=== PATIENT | female | born 1930 | race Caucasian/White ===

== ENCOUNTER 2018-01-14 21:03 | Inpatient (IN) | payer OTHER ==
[~2018-01-14] VITALS: Ht 160 cm; Wt 76.7 kg
[~2018-01-14 21:03] MED LIST: ARICEPT 5 MG TAB5 MG PO; ARIPIPRAZOLE5 MG PO; ASPIR 8181 MG PO; BACTRIM DS TAB1 EACH PO; CENTRUM SILVER1 EAC4 PO; CYMBALTA30 MG PO; HYDROCHLOROTHIA25 M1 PO; LAMICTAL100 MG PO; LISINOPRIL20 MG PO; LORAZEPAM 1 MG T1 M1 PO; NORVASC5 MG PO; PRAVASTATIN SOD40 MG PO; PRINIVIL20 MG PO; SERTRALINE HCL50 MG PO; VISION FORMULA1 EAC1 PO; VITAMIN D1000 UNI1 PO; VITAMIN D2000 UNIT PO; XANAX 0.25 MG0.25 MG PO; XANAX 0.5 MG0.5 MG PO
[2018-01-14 21:10] VITALS: BP 174/108
[2018-01-14] MEDS ORDERED: RITALIN5 MG PO (21:15)
[2018-01-14 21:47] LABS: ABSOLUTE BASOPHILS 0.1 thou/uL (0.0-0.2); ABSOLUTE EOSINOPHILS 0.1 thou/uL (0.0-0.7); ABSOLUTE LYMPHOCYTES 2.7 thou/uL (0.8-5.3); ABSOLUTE MONOCYTES 0.5 thou/uL (0.0-1.2); ABSOLUTE NEUTROPHILS 4.6 thou/uL (1.6-8.1); BASOPHILS 1.2 %; EOSINOPHILS 1.7 %; HEMOGLOBIN 12.8 gm/dL (12.0-15.0); LYMPHOCYTES 33.2 %; MCHC 32.8 g/dL (28.0-37.0); MCV 88.4 fL (80.0-100.0); MONOCYTES 6.6 %; MPV 9.2 fl. (7.2-11.1); NUCLEATED RBCS 0 /100WBC; PLATELET COUNT* 200 thou/uL (150-400); POLYS 57.3 %; RBC 4.41 mil/uL (4.20-5.00); WBC 8.1 thou/uL (4.0-11.0)
[2018-01-14 21:53] LABS: CALCIUM 8.6 mg/dL (8.5-10.1); CREATININE 0.9 mg/dL (0.6-1.3); POTASSIUM 3.6 mmol/L (3.5-5.1)
[2018-01-14 21:55] LABS: APTT 28.1 Seconds (25.0-31.3)
[2018-01-14 21:57] LABS: TOTAL BILIRUBIN 0.2 mg/dL (<0.1-1.0); TOTAL PROTEIN 6.9 g/dL (6.4-8.2)
[2018-01-15] VITALS: BP 187/88
[2018-01-15 00:30] VITALS: BP 187/75
--- NOTE | 2018-01-15 01:58 | NUR ---
PATIENT ADMITTED TO ROOM 104 FROM THE ER. VSS ON RA, ALTHOUGH BP ELEVATED. NOTIFIED OF ELEVATED BP. WAITING FOR ANY NEW ORDERS. PATIENT IS ALERT AND ORIENTED AND ANSWERS QUESTIONS APPROPRIATELY. PICTURES TAKEN OF ALL LACERATIONS AND ABRASIONS EXCEPT FOR THE RIGHT FOREARM. PATIENT AND DAUGHTER REQUESTED THAT THE DRESSING NOT BE REMOVED D/T ER HAVING DIFFICULTY STOPPING THE BLEEDING. ER APPLIED GEL SPONGE AND COMPRESSING DRESSING. NO C/O PAIN AT THIS TIME. PATIENT ORIENTED TO ROOM AND POLICIES. ASSESSMENT CHARTED. FALL EDUCATION GIVEN AND FALL AGREEMENT SIGNED. PATIENT AND DAUGHTER VERBALIZED UNDERSTANDING. FALL PRECAUTIONS IN PLACE AND HOURLY ROUNDS TO BE MADE. WILL CONTINUE WITH PLAN OF CARE AND NURSING TO MONITOR.
[2018-01-15 03:30] VITALS: BP 187/75
[2018-01-15 03:44] VITALS: BP 191/88
[2018-01-15 07:30] VITALS: BP 143/66
--- NOTE | 2018-01-15 08:00 | NUR ---
PATIENT HAS SLEPT WELL THROUGHOUT THE NIGHT SINCE BEING ADMITTED TO UNIT. PATIENT WAKES UP WHEN AROUSED AND SPOKEN TOO AND ANSWERS QUESTIONS APPROPRIATELY. PATIENT IS UP WITH ASSIST X 1 WITH CANE TO BS AND IS UNSTEADY AT TIMES. VSS ON RA, ALTHOUGH BP ELEVATED. MEDICATION GIVEN FOR ELEVATED BP PER DR. HARDIN. PICTURES OF RIGHT ARM SKIN TEARS, RIGHT AND LEFT HAND ABRASIONS AND CONTUSION TO RIGHT SIDE OF FOREHEAD WERE TAKEN AND PLACED IN PATIENT CHART. COMPRESSION DRESSING TO RIGHT ARM IS C/D/I AND HAS NOT BEEN REMOVED AT THE REQUEST OF FAMILY AND PATIENT D/T HAVING DIFFICULTY CONTROLLING THE BLEEDING. WOUND CARE HAS BEEN CONSULTED THIS AM. PATIENT DENIES PAIN AT THIS TIME AND STATES THAT SHE IS JUST A LITTLE SORE AND STIFF RIGHT NOW. IV IN LEFT AC-SL. FALL PRECAUTIONS IN PLACE AND HOURLY ROUNDS MADE. WILL CONTINUE WITH PLAN OF CARE AND NURSING TO MONITOR.
--- NOTE | 2018-01-15 14:45 | NUR ---
PT.UP IN CHAIR. SON AND HIS HERE. PT.SEEMS ALERT AND ORIENTED. SHE SAID SHE LIVES ALONE. SHE HAS A CAREGIVER M-F 11-4 AND THEN ABOUT 6-8PM. SHE COOKS,CLEANS,DOES ERRANDS,MOWS THE GRASS,DOES LAUNDRY. PT. SAID SHE'LL DO ABOUT ANYTHING I ASK. SHE HAS A DIFFERENT DISPATCH MACHINE RUNNER THAT COMES ON MONDAY AND STAYS THE SAME HRS. FAMILY CHECKS IN ON HER ON SUNDAYS. PT.JUST FEELS SHE TRIPPED ON SOMETHING AND FELL LAST NIGHT. SHE IS AGREEABLE TO HOME HEALTH. SHE WOULD LIKE TO USE [facility] SHE USED THEM BEFORE. FAXED REFERRAL TO [facility]. PT.WILL MOST LIKELY GO HOME TOMORROW.
[2018-01-15 16:00] VITALS: BP 140/60
--- NOTE | 2018-01-15 20:04 | NUR ---
PATIENT REMAINED ALERT AND ORIENTED X'S 3. VITAL SIGNS AND SPO2 STABLE. IV CLEAN, FLUSHING. PAIN WELL CONTROLLED WITH MEDS. TOLERATED DIET, NO NAUSEA AND VOMITING. PATIENT IS IMPULSIVE AND GETS UP WITHOUT CALLING OUT FOR HELP. NURSE RE-EDUCATED PATIENT A FEW TIMES THAT SHE MUST USE THE CALL LIGHT. NURSE AND AID BOTH TOOK PATIENT FOR A WALK, THAT HELPED HER GET OUT OF THE ROOM. COMPLETED HOURLY ROUNDING. CALL LIGHT WITHIN REACH. WILL CONTINUE TO MONITOR.
[2018-01-16 02:18] VITALS: BP 183/88
--- NOTE | 2018-01-16 04:26 | NUR ---
PATIENT ALERT AND ORIENTED X 4, FORGETFUL AT TIMES. DENIES PAIN. RIGHT FOREARM DRESSING C/D/I. MULTPILE BRUISES TO FACE AND UPPER AND LOWER EXTREMITIES DUE TO FALL. SLEPT COMFORTABLY THROUGH THE NIGHT. UP WITH SBA CANE AND GAITBELT TO BSC. HOURLY ROUNDS. BED ALARM IN USE. USES CALL LIGHT APPROPRIATELY AT TIMES. NURSING WILL CONTINUE TO MONITOR.
[2018-01-16 04:43] LABS: ABSOLUTE BASOPHILS 0.1 thou/uL (0.0-0.2); ABSOLUTE EOSINOPHILS 0.2 thou/uL (0.0-0.7); ABSOLUTE LYMPHOCYTES 1.6 thou/uL (0.8-5.3); ABSOLUTE MONOCYTES 0.7 thou/uL (0.0-1.2); ABSOLUTE NEUTROPHILS 5.6 thou/uL (1.6-8.1); BASOPHILS 0.6 %; EOSINOPHILS 2.4 %; HEMATOCRIT 38.5 % (37.0-47.0); HEMOGLOBIN 12.7 gm/dL (12.0-15.0); LYMPHOCYTES 19.6 %; MCH 28.5 pg (26.0-34.0); MCV 86.4 fL (80.0-100.0); MONOCYTES 8.5 %; MPV 9.9 fl. (7.2-11.1); NUCLEATED RBCS 0 /100WBC; PLATELET COUNT* 194 thou/uL (150-400); POLYS 68.9 %; RBC 4.46 mil/uL (4.20-5.00); WBC 8.2 thou/uL (4.0-11.0)
[2018-01-16 04:53] LABS: CREATININE 0.8 mg/dL (0.6-1.3); POTASSIUM 3.8 mmol/L (3.5-5.1)
[2018-01-16 07:59] VITALS: BP 162/77
[2018-01-16 13:19] VITALS: BP 162/77
--- NOTE | 2018-01-16 13:52 | NUR ---
WOUND CARE NOTE: CONSULT RECEIVED FOR ABRASIONS, CONTUSION, LACERATION. PATIENT HAS MULTIPLE AREAS OF ECCHYMOSIS AND TRAUMA RELATED SKIN ALTERATION. MOST CONCERNING INJURY IS TO THE RIGHT POSTERIOR FOREARM. PATIENT IS S/P FALL AND SUSTAINED THIS DURING HER FALL. PATIENT IS NOT SURE WHAT SHE HIT HER ARM ON THOUGH. DRESSING WITH SMALL TO MODERATE AMOUNTS OF DRIED SANGUINEOUS DRAINAGE. THIS WAS DIFFICULT TO REMOVE, BUT SATURATED THE OLD DRESSING IN WOUND CLEANSER AND SLOWLY EASED THE DRESSING OFF. PROXIMAL AND DISTAL ENDS OF THE WOUNDS WITH STERI-STRIPS IN PLACE. LEFT IN PLACE. CENTER OF THE WOUND IS OPEN WITH GEL FOAM. GENTLY CLEANSED MOST OF GEL FOAM OFF TO REVEAL THE WOUND BED. ENTIRETY OF THE WOUND MEASURES 21.5X2X0.5. THE OPEN WOUND BED IS MOIST, PINK. DRAINING SMALL AMOUNTS OF SEROSANGUINEOUS DRAINAGE. NO ACTIVE BLEEDING NOTED. MAGDALENE-WOUND IS ECCHYMOTIC, FRAGILE. GENTLY CLEANSED WOUND. PATTED DRY. APPLIED VASELINE GAUZE OVER THE WOUND AND STERI-STRIPS TO HELP WITH WOUND HEALING AND TO ASSIST WITH PREVENTING THE DRESSING FROM STICKING IT DID PREVIOUSLY. COVERED AREA WITH ABDS. SECURED WITH ROLL GAUZE AND TAPE. EDUCATED PATIENT ON FINDINGS AND DRESSING SELECTION, COMMUNICATED UNDERSTANDING. EDUCATED PATIENT ON IMPORTANCE OF NUTRITION FOR WOUND HEALING, COMMUNICATED UNDERSTANDING. EDUCATED PATIENT NOT TO GET DRESSING WET AND TO LET THE STERI-STRIPS COME OFF ON THEIR OWN. COMMUNICATED UNDERSTANDING RECOMMEND FOLLOW UP IN WOUND CENTER-01/19/[address] BRIAN ENCOURAGE GOOD NUTRITION AND HYDRATION FOR WOUND HEALING LEAVE STERI-STRIPS IN PLACE UNTIL THEY COME OFF ON OWN. DAILY DRESSING CHANGES DO NOT GET DRESSING WET.
[2018-01-16 16:00] VITALS: BP 154/99
--- NOTE | 2018-01-16 17:20 | NUR ---
PATIENT REMAINS ALERT AND ORIENTED. FORGETFUL AT TIMES. ANXIOUS. HOME RITALIN STARTED TODAY (DAUGHTER BROUGHT IT IN). WOUND CARE NURSE CHANGED DRESSING OVER SKIN TEAR TO RIGHT ARM THIS AM. WOUND CENTER FOLLOW UP APPT MADE. PARTICIPATED WITH PT/OT. TOLERATING MEALS. TRANSFERS AND AMBULATES WITH STANDBY ASSIST. BED/CHAIR ALARM IN USE. CALL LIGHT WITHIN REACH. WILL CONTINUE TO MONITOR.
[2018-01-16 19:30] VITALS: BP 167/91
[2018-01-17 02:44] LABS: URINE BILIRUBIN NEGATIVE (Negative); URINE BLOOD TRACE (Negative); URINE CLARITY CLEAR; URINE COLOR STRAW; URINE GLUCOSE-RANDOM NEGATIVE (Negative); URINE KETONES NEGATIVE (Negative); URINE LEUKOCYTES-REFLEX 1+ (Negative); URINE NITRITE-REFLEX NEGATIVE (Negative); URINE PROTEIN NEGATIVE (Negative); URINE UROBILINOGEN 0.2 E.U./dl (0.2-1.0)
[2018-01-17 03:14] LABS: BACTERIA-REFLEX 1-9 Few /HPF (None Seen); CASTS None Seen /LPF (None Seen); CRYSTALS None Seen /LPF (None Seen); SQUAMOUS 0-3 Few /LPF (0-3); URINE RBC 0-2 Rare /HPF (0-2); URINE WBC-REFLEX 0-5 Rare /HPF (0-5)
[2018-01-17 03:50] VITALS: BP 194/104
[2018-01-17 03:55] VITALS: BP 183/92
[2018-01-17 04:31] LABS: ABSOLUTE BASOPHILS 0.1 thou/uL (0.0-0.2); ABSOLUTE EOSINOPHILS 0.1 thou/uL (0.0-0.7); ABSOLUTE LYMPHOCYTES 2.4 thou/uL (0.8-5.3); ABSOLUTE MONOCYTES 0.7 thou/uL (0.0-1.2); BASOPHILS 0.6 %; EOSINOPHILS 1.6 %; HEMATOCRIT 37.9 % (37.0-47.0); HEMOGLOBIN 12.7 gm/dL (12.0-15.0); LYMPHOCYTES 29.3 %; MCHC 33.4 g/dL (28.0-37.0); MCV 86.8 fL (80.0-100.0); MONOCYTES 8.5 %; MPV 9.9 fl. (7.2-11.1); NUCLEATED RBCS 0 /100WBC; PLATELET COUNT* 205 thou/uL (150-400); RBC 4.36 mil/uL (4.20-5.00); WBC 8.4 thou/uL (4.0-11.0)
--- NOTE | 2018-01-17 04:47 | NUR ---
PATIENT ALERT AND ORIENTED X 4. ANXIOUS WITH CONSTANT TEARINESS TOWARDS BEDTIME. PHYSICIAN NOTIFED WITH NEW ORDERS. XANAX PROVIDED X 1 TO GOOD EFFECT AND PATIENT DID REST OVERNIGHT. ELEVATED BP EARLY AM. PRN HYDRALAZINE PROVIDED. UP TP BE WITH CGA, GAIT BELT AND CANE OR WALKER. DID TRIGGER BED ALARM X 2. CONTINUE TO MONITOR.
[2018-01-17 04:53] LABS: CREATININE 0.7 mg/dL (0.6-1.3); POTASSIUM 3.7 mmol/L (3.5-5.1)
[2018-01-17 08:30] VITALS: BP 177/98
[2018-01-17 10:18] VITALS: BP 162/77
[2018-01-17] MEDS ORDERED: TYLENOL EXTRA500 MG PO (10:18)
--- NOTE | 2018-01-17 10:42 | NUR ---
CALLED PATIENTS CAREGIVER JAIME TO LET HER KNOW SHE IS READY FOR DISCHARGE. DRESSING CHANGED. PICTURE WITHIN LAST 2 HOURS. WOUND CENTER FOLLOW UP MADE YESTERDAY. CAERGIVER COMFORTABLE WITH DRESSING CHANGES. IV REMOVED. DAUGHTER GURDEEP NOTIFIED OF DC. PATIENT VERBALIZED UNDERSTANDING OF DC INSTRUCTIONS.
--- NOTE | 2018-01-17 11:46 | NUR ---
MELANY/ABRAHAM NOTIFIED [facility] THAT PT.DID NOT NEED [facility] AT DISCHARGE. THEY WILL DISCARD REFERRAL.
--- NOTE | 2018-01-17 13:40 | NUR ---
PATIENT DISCHARGED WITH CAREGIVER-JAIME AT THIS TIME. INSTRUCTED JAIME ON WOUND CARE, AND INFORMED HER OF WOUND CENTER APPT 01/19/ AT 0800. JAIME VERBALIZED UNDERSTANDING.
== END 2018-01-17 13:45 | disposition home or self-care (01) | DRG 605 ==
LOC: M.ERS 21:03 → M.ORTHSURG 22:52 → M.TBA-ER 22:52 → M.ORTHSURG 01-15
PROVIDERS: Personal Emergency Response Attendant; ADMIT Internal Medicine
PROC: 0HQDXZZ Repair Right Lower Arm Skin, External Approach (ICD-10-PCS; principal; 2018-01-14)
DX: S51.811A Laceration without foreign body of right forearm, initial encounter (principal); E44.0 Moderate protein-calorie malnutrition; S09.8XXA Other specified injuries of head, initial encounter; I10 Essential (primary) hypertension; F41.9 Anxiety disorder, unspecified; F32.9 Major depressive disorder, single episode, unspecified; W01.0XXA Fall on same level from slipping, tripping and stumbling without subsequent striking against object, initial encounter; Z96.653 Presence of artificial knee joint, bilateral; Z79.82 Long term (current) use of aspirin; Z79.899 Other long term (current) drug therapy; Z88.0 Allergy status to penicillin; Y93.89 Activity, other specified; Y92.098 Other place in other non-institutional residence as the place of occurrence of the external cause; Y99.8 Other external cause status

== ENCOUNTER → 2018-01-19 | Outpatient (CLI) | payer OTHER ==
[~2018-01-19] MED LIST changes: +RITALIN5 MG PO; +TYLENOL EXTRA500 MG PO
== END ==
LOC: M.WC 02:30
DX: S51.811A Laceration without foreign body of right forearm, initial encounter (principal); S61.411A Laceration without foreign body of right hand, initial encounter; I10 Essential (primary) hypertension; K59.00 Constipation, unspecified; F33.1 Major depressive disorder, recurrent, moderate; F41.1 Generalized anxiety disorder; Z68.28 Body mass index [BMI] 28.0-28.9, adult; X58.XXXA Exposure to other specified factors, initial encounter; Y93.89 Activity, other specified; Y92.89 Other specified places as the place of occurrence of the external cause; Y99.8 Other external cause status

== ENCOUNTER → 2018-01-26 | Outpatient (CLI) | payer OTHER | LOC: M.WC 02:16 | DX: S51.811D Laceration without foreign body of right forearm, subsequent encounter (principal); S61.411D Laceration without foreign body of right hand, subsequent encounter; L84 Corns and callosities; I10 Essential (primary) hypertension; F32.9 Major depressive disorder, single episode, unspecified; F41.9 Anxiety disorder, unspecified; Z96.653 Presence of artificial knee joint, bilateral; X58.XXXD Exposure to other specified factors, subsequent encounter ==

== ENCOUNTER → 2018-02-01 | Outpatient (CLI) | payer OTHER | LOC: M.WC 03:54 | DX: S51.811D Laceration without foreign body of right forearm, subsequent encounter (principal); S61.411D Laceration without foreign body of right hand, subsequent encounter; I10 Essential (primary) hypertension; L84 Corns and callosities; K59.00 Constipation, unspecified; F33.1 Major depressive disorder, recurrent, moderate; F41.1 Generalized anxiety disorder; Z68.28 Body mass index [BMI] 28.0-28.9, adult; Z96.653 Presence of artificial knee joint, bilateral; X58.XXXD Exposure to other specified factors, subsequent encounter ==

== ENCOUNTER → 2018-02-08 | Outpatient (CLI) | payer OTHER | LOC: M.WC 03:22 | DX: S51.811D Laceration without foreign body of right forearm, subsequent encounter (principal); I10 Essential (primary) hypertension; F33.1 Major depressive disorder, recurrent, moderate; F41.1 Generalized anxiety disorder; K59.00 Constipation, unspecified; Z68.28 Body mass index [BMI] 28.0-28.9, adult; Z89.512 Acquired absence of left leg below knee; Z89.511 Acquired absence of right leg below knee; X58.XXXD Exposure to other specified factors, subsequent encounter ==

== ENCOUNTER → 2018-02-15 | Outpatient (CLI) | payer OTHER | LOC: M.WC 03:56 | DX: S51.801D Unspecified open wound of right forearm, subsequent encounter (principal); L84 Corns and callosities; I10 Essential (primary) hypertension; K59.00 Constipation, unspecified; F33.1 Major depressive disorder, recurrent, moderate; F41.1 Generalized anxiety disorder; Z96.653 Presence of artificial knee joint, bilateral; X58.XXXD Exposure to other specified factors, subsequent encounter ==

== ENCOUNTER → 2018-02-22 | Outpatient (CLI) | payer OTHER | LOC: M.WC 02:05 | DX: S51.811D Laceration without foreign body of right forearm, subsequent encounter (principal); I10 Essential (primary) hypertension; F33.1 Major depressive disorder, recurrent, moderate; F41.1 Generalized anxiety disorder; K59.00 Constipation, unspecified; W19.XXXD Unspecified fall, subsequent encounter ==

== ENCOUNTER → 2018-03-01 | Outpatient (CLI) | payer OTHER | LOC: M.WC 03:47 | DX: S51.811D Laceration without foreign body of right forearm, subsequent encounter (principal); I10 Essential (primary) hypertension; L84 Corns and callosities; K59.00 Constipation, unspecified; F33.1 Major depressive disorder, recurrent, moderate; F41.1 Generalized anxiety disorder; Z68.28 Body mass index [BMI] 28.0-28.9, adult; Z96.653 Presence of artificial knee joint, bilateral; X58.XXXD Exposure to other specified factors, subsequent encounter ==

== ENCOUNTER 2018-10-15 14:32 | Inpatient (IN) | payer OTHER ==
[~2018-10-15] VITALS: Ht 157.5 cm; Wt 73.0 kg
[~2018-10-15 14:32] MED LIST changes: -ASPIR 8181 MG PO
[2018-10-15 14:42] VITALS: BP 165/73
[2018-10-15] MEDS ORDERED: EFFEXOR 5050 MG/1 T1 PO (14:50)
[2018-10-15 15:13] LABS: HEMATOCRIT 42.3 % (37.0-47.0); HEMOGLOBIN 13.8 gm/dL (12.0-15.0); MCH 28.2 pg (26.0-34.0); MCHC 32.7 g/dL (28.0-37.0); MCV 86.3 fL (80.0-100.0); MPV 9.9 fl. (7.2-11.1); NUCLEATED RBCS 0 /100WBC; PLATELET COUNT* 236 thou/uL (150-400); RDW-CV 15.9 % (10.5-14.5); WBC 15.7 thou/uL (4.0-11.0)
[2018-10-15 15:20] LABS: APTT 30.5 Seconds (25.0-31.3); PROTIME 10.2 Seconds (9.20-11.50)
[2018-10-15 15:32] LABS: ANION GAP < 0 mmol/L (7-16); BUN 37 mg/dL (7-18); CALCIUM 9.6 mg/dL (8.5-10.1); CHLORIDE 100 mmol/L (98-107); CO2 29 mmol/L (21-32); CREATININE 1.3 mg/dL (0.6-1.3); GLUCOSE 122 mg/dL (70-99); POTASSIUM 3.2 mmol/L (3.5-5.1); SODIUM 125 mmol/L (136-145); TROPONIN-I LEVEL <0.06 ng/mL (<0.06)
[2018-10-15 15:48] LABS: ALBUMIN 3.2 g/dL (3.4-5.0); ALKALINE PHOSPHATASE 136 U/L (46-116); CK-MB MASS 26.4 ng/mL (<0.5-3.6); NT-PRO BRAIN NAT PEPTIDE 684 pg/mL (<300); SGOT 79 U/L (15-37); SGPT 47 U/L (30-65); TOTAL BILIRUBIN 0.5 mg/dL (<0.1-1.0); TOTAL PROTEIN 7.6 g/dL (6.4-8.2)
--- NOTE | 2018-10-15 16:13 | EKG ---
[place] [address] ELECTROCARDIOGRAM REPORT Name: CHAO HERRERA Room: [facility]#: [id number] Admission: 10/15/18 Attend Phys: Discharge: Date of : 34 Report #: [id number] THIS REPORT FOR: //name// [facility] ED Test Date: 2018-10-15 Test Time: 14:50:36 Pat Name: CHAO HERRERA Department: Room: Gender: F Railroad Operating Engineer: WENDI : 1930 Requested By: Kee Hill Order Number: [id number] MD: Kannan Grullon Measurements Intervals [place] Rate: 101 P: 19 TN: 157 QRS: -21 QRSD: 70 T: 101 QT: 352 QTc: 457 Interpretive Statements Pacemaker spikes or artifacts Sinus tachycardia LVH with secondary repolarization abnormality Anterior Q waves, possibly due to LVH Compared to ECG 04/18/2017 10:51:53 Left ventricular hypertrophy now present Early repolarization now present Q waves now present Atrial premature complex(es) no longer present Electronically Signed On 10-15-2018 16:13:11 CISCO UNIFIED COMMUNICATIONS ENGINEER by Kannan Grullon [email or web address] <ELECTRONICALLY SIGNED> By: Kannan Grullon MD, [facility] 10/15/18 1613 1450 1450 Kannan Grullon MD, [facility] /EPI
[2018-10-15 16:17] LABS: ABSOLUTE LYMPHOCYTES 1.4 thou/uL (0.8-5.3); ABSOLUTE MONOCYTES 0.8 thou/uL (0.0-1.2); ABSOLUTE NEUTROPHILS 13.5 thou/uL (1.6-8.1); PLATELET ESTIMATE ADEQUATE
[2018-10-15 16:20] LABS: URINE BILIRUBIN NEGATIVE (Negative); URINE BLOOD 2+ (Negative); URINE CLARITY CLEAR; URINE COLOR YELLOW; URINE GLUCOSE-RANDOM NEGATIVE (Negative); URINE KETONES 1+ (Negative); URINE LEUKOCYTES-REFLEX NEGATIVE (Negative); URINE PROTEIN 1+ (Negative); URINE SPECIFIC GRAVITY >= 1.030 (1.005-1.030); URINE UROBILINOGEN 0.2 E.U./dl (0.2-1.0)
[2018-10-15 16:39] LABS: URINE NITRITE-REFLEX POSITIVE (Negative)
[2018-10-15 16:40] LABS: BACTERIA-REFLEX >30 Many /HPF (None Seen); CASTS None Seen /LPF (None Seen); CRYSTALS None Seen /LPF (None Seen); SQUAMOUS 0-3 Few /LPF (0-3); URINE RBC None Seen /HPF (0-2); URINE WBC-REFLEX 6-15 Few /HPF (0-5)
[2018-10-15 17:17] VITALS: BP 160/89
[2018-10-15 17:25] VITALS: BP 139/62
[2018-10-15 19:40] VITALS: BP 150/61
[2018-10-16 04:00] VITALS: BP 160/66
[2018-10-16 06:39] LABS: AMP/METHAMP Negative (Negative); BARBITURATES Negative (Negative); BENZODIAZEPINES POSITIVE (Negative); COCAINE Negative (Negative); METHADONE Negative (Negative); OPIATES Negative (Negative); PCP Negative (Negative); THC Negative (Negative)
[2018-10-16 07:13] LABS: POTASSIUM 3.7 mmol/L (3.5-5.1)
[2018-10-16 08:00] VITALS: BP 152/74
[2018-10-16 10:18] LABS: ABSOLUTE BASOPHILS 0.1 thou/uL (0.0-0.2); ABSOLUTE LYMPHOCYTES 1.6 thou/uL (0.8-5.3); ABSOLUTE MONOCYTES 0.8 thou/uL (0.0-1.2); BASOPHILS 0.6 %; EOSINOPHILS 0.1 %; HEMATOCRIT 34.7 % (37.0-47.0); LYMPHOCYTES 14.2 %; MCH 28.4 pg (26.0-34.0); MCV 85.8 fL (80.0-100.0); MONOCYTES 6.7 %; MPV 10.3 fl. (7.2-11.1); NUCLEATED RBCS 0 /100WBC; PLATELET COUNT* 199 thou/uL (150-400); POLYS 78.4 %; RBC 4.04 mil/uL (4.20-5.00); RDW-CV 15.7 % (10.5-14.5); WBC 11.5 thou/uL (4.0-11.0)
[2018-10-16 10:19] LABS: HEMOGLOBIN 11.5 gm/dL (12.0-15.0)
[2018-10-16 10:48] LABS: CALCIUM 8.4 mg/dL (8.5-10.1); CREATININE 0.9 mg/dL (0.6-1.3); MAGNESIUM 1.9 mg/dL (1.8-2.4)
[2018-10-16 11:30] VITALS: BP 158/53
[2018-10-16 15:30] VITALS: BP 170/78
--- NOTE | 2018-10-16 16:38 | EKG ---
[place] [address] ELECTROCARDIOGRAM REPORT Name: CHAO HERRERA Room: [address] ADM IN M.R.#: [id number] Admission: 10/15/18 Attend Phys: Sofi Flores MD Discharge: Date of : 32 Report #: [id number] THIS REPORT FOR: //name// [facility] Test Date: 2018-10-16 Test Time: 13:15:39 Pat Name: CHAO HERRERA Department: Room: [address] Gender: F Fisheries Diver: : 1930 Requested By: Sofi Flores Order Number: [id number] Reading MD: Kannan Grullon Measurements Intervals [place] Rate: 105 P: 28 ME: 140 QRS: -26 QRSD: 87 T: 35 QT: 336 QTc: 445 Interpretive Statements Sinus tachycardia Inferior infarct, old Baseline wander in lead(s) II,III,aVF Compared to ECG 10/15/2018 14:50:36 Myocardial infarct finding now present Early repolarization no longer present Electronically Signed On 10-16-2018 16:38:08 FIRE PROTECTION SPECIALIST by Kannan Grullon [email or web address] <ELECTRONICALLY SIGNED> By: Kannan Grullon MD, [facility] 10/16/18 1638 1315 1315 Kannan Grullon MD, [facility] /EPI
[2018-10-16 19:50] VITALS: BP 159/72
[2018-10-16 20:00] VITALS: BP 124/55
[2018-10-17 00:52] VITALS: BP 166/93
[2018-10-17 04:57] VITALS: BP 142/73
[2018-10-17 05:02] LABS: ABSOLUTE BASOPHILS 0.1 thou/uL (0.0-0.2); ABSOLUTE EOSINOPHILS 0.1 thou/uL (0.0-0.7); ABSOLUTE LYMPHOCYTES 1.8 thou/uL (0.8-5.3); ABSOLUTE MONOCYTES 0.6 thou/uL (0.0-1.2); ABSOLUTE NEUTROPHILS 5.1 thou/uL (1.6-8.1); BASOPHILS 1.2 %; EOSINOPHILS 1.2 %; HEMOGLOBIN 10.3 gm/dL (12.0-15.0); LYMPHOCYTES 22.9 %; MCH 28.6 pg (26.0-34.0); MCHC 33.2 g/dL (28.0-37.0); MCV 86.3 fL (80.0-100.0); MONOCYTES 8.1 %; MPV 10.1 fl. (7.2-11.1); NUCLEATED RBCS 0 /100WBC; PLATELET COUNT* 173 thou/uL (150-400); POLYS 66.6 %; RDW-CV 15.5 % (10.5-14.5); WBC 7.7 thou/uL (4.0-11.0)
[2018-10-17 05:42] LABS: CALCIUM 8.1 mg/dL (8.5-10.1); CREATININE 0.7 mg/dL (0.6-1.3); POTASSIUM 3.5 mmol/L (3.5-5.1)
[2018-10-17 08:00] VITALS: BP 177/89
[2018-10-17 13:17] VITALS: BP 170/71
[2018-10-17 16:57] VITALS: BP 165/64
[2018-10-17 20:00] VITALS: BP 170/72
[2018-10-18] VITALS: BP 203/78
[2018-10-18 04:00] VITALS: BP 148/55
[2018-10-18 08:00] VITALS: BP 167/74
[2018-10-18 10:38] VITALS: BP 167/74
[2018-10-18 11:47] VITALS: BP 150/74
[2018-10-18] MEDS ORDERED: BACTRIM DS TAB1 EACH PO (12:27)
[2018-10-18] MEDS ORDERED: AMLODIPINE BESYL5 M1 PO (12:28)
[2018-10-18] MEDS ORDERED: ASPIR 8181 MG PO (14:10)
[2018-10-18 14:11] VITALS: BP 167/74
== END 2018-10-18 18:45 | DRG 871 ==
LOC: M.ERS 14:32 → M.2W 16:00 → M.TBA-ER 16:00 → M.2W 17:28
PROVIDERS: Family Medicine; ADMIT Family Medicine
DX: A41.9 Sepsis, unspecified organism (principal); N17.0 Acute kidney failure with tubular necrosis; N39.0 Urinary tract infection, site not specified; E87.1 Hypo-osmolality and hyponatremia; M62.82 Rhabdomyolysis; R65.20 Severe sepsis without septic shock; I12.9 Hypertensive chronic kidney disease with stage 1 through stage 4 chronic kidney disease, or unspecified chronic kidney disease; F41.9 Anxiety disorder, unspecified; F32.9 Major depressive disorder, single episode, unspecified; Z96.653 Presence of artificial knee joint, bilateral; N18.3 Chronic kidney disease, stage 3 (moderate); F03.90 Unspecified dementia, unspecified severity, without behavioral disturbance, psychotic disturbance, mood disturbance, and anxiety; E87.6 Hypokalemia; R00.0 Tachycardia, unspecified; Z79.82 Long term (current) use of aspirin; Z88.0 Allergy status to penicillin; Z79.899 Other long term (current) drug therapy

== ENCOUNTER 2018-10-24 13:54 | Inpatient (IN) | payer OTHER ==
[~2018-10-24] VITALS: Ht 160 cm; Wt 71.7 kg
[~2018-10-24 13:54] MED LIST changes: +AMLODIPINE BESYL5 M1 PO; +ASPIR 8181 MG PO; +EFFEXOR 5050 MG/1 T1 PO
[2018-10-24 14:06] VITALS: BP 172/71
[2018-10-24 14:28] LABS: ABSOLUTE BASOPHILS 0.1 thou/uL (0.0-0.2); ABSOLUTE EOSINOPHILS 0.1 thou/uL (0.0-0.7); ABSOLUTE LYMPHOCYTES 1.8 thou/uL (0.8-5.3); ABSOLUTE MONOCYTES 0.5 thou/uL (0.0-1.2); ABSOLUTE NEUTROPHILS 4.4 thou/uL (1.6-8.1); BASOPHILS 1.4 %; EOSINOPHILS 2.1 %; HEMATOCRIT 38.2 % (37.0-47.0); HEMOGLOBIN 12.6 gm/dL (12.0-15.0); LYMPHOCYTES 26.5 %; MCH 28.6 pg (26.0-34.0); MCV 86.8 fL (80.0-100.0); NUCLEATED RBCS 0 /100WBC; PLATELET COUNT* 266 thou/uL (150-400); RBC 4.41 mil/uL (4.20-5.00); RDW-CV 15.8 % (10.5-14.5); WBC 6.9 thou/uL (4.0-11.0)
[2018-10-24 14:40] LABS: APTT 29.7 Seconds (25.0-31.3); INR 0.9; PROTIME 9.6 Seconds (9.20-11.50)
[2018-10-24 14:48] LABS: ANION GAP 4 mmol/L (7-16); BUN 24 mg/dL (7-18); CALCIUM 9.1 mg/dL (8.5-10.1); CHLORIDE 102 mmol/L (98-107); CO2 30 mmol/L (21-32); CREATININE 1.1 mg/dL (0.6-1.3); GLUCOSE 90 mg/dL (70-99); POTASSIUM 5.1 mmol/L (3.5-5.1); SODIUM 136 mmol/L (136-145); TROPONIN-I LEVEL <0.06 ng/mL (<0.06)
--- NOTE | 2018-10-24 14:48 | NUR ---
WILFRIDO NOTIFIED UPON PT RETURN FROM CT. PT CONNECTED TO HOSPITAL PHARMACIST SHE WAS PRIOR TO GOING TO CT
[2018-10-24 14:53] LABS: ALBUMIN 3.2 g/dL (3.4-5.0); ALKALINE PHOSPHATASE 126 U/L (46-116); CK-MB MASS 1.6 ng/mL (<0.5-3.6); NT-PRO BRAIN NAT PEPTIDE 93 pg/mL (<300); SGOT 41 U/L (15-37); SGPT 57 U/L (30-65); TOTAL BILIRUBIN 0.3 mg/dL (<0.1-1.0); TOTAL PROTEIN 7.2 g/dL (6.4-8.2)
[2018-10-24 15:28] LABS: URINE BILIRUBIN NEGATIVE (Negative); URINE BLOOD NEGATIVE (Negative); URINE CLARITY CLEAR; URINE COLOR YELLOW; URINE GLUCOSE-RANDOM NEGATIVE (Negative); URINE KETONES NEGATIVE (Negative); URINE LEUKOCYTES-REFLEX TRACE (Negative); URINE NITRITE-REFLEX NEGATIVE (Negative); URINE PROTEIN NEGATIVE (Negative); URINE SPECIFIC GRAVITY 1.015 (1.005-1.030); URINE UROBILINOGEN 0.2 E.U./dl (0.2-1.0)
[2018-10-24 15:36] LABS: HYALINE CASTS 0-3 Few /LPF (None Seen)
[2018-10-24 15:37] LABS: BACTERIA-REFLEX 1-9 Few /HPF (None Seen); MUCUS None Seen strn/LPF (None Seen); SQUAMOUS >10 Many /LPF (0-3); URINE WBC-REFLEX 6-15 Few /HPF (0-5)
[2018-10-24 15:38] LABS: CRYSTALS None Seen /LPF (None Seen); URINE RBC None Seen /HPF (0-2)
[2018-10-24 16:54] VITALS: BP 135/64
[2018-10-24 17:40] VITALS: BP 146/69
--- NOTE | 2018-10-24 18:10 | NUR ---
ADMIT NOTE - PT ADMITTED TO [facility] FROM ED. PT ABLE TO AMBULATE FROM CART TO BED WITH MINIMAL ASSIST X 1. DTR PRESENT AT BEDSIDE. IV IN R AC. WILL CONTINUE TO MONITOR.
[2018-10-24 21:01] LABS: BE 1.6 mmol/L (-2 to +3); PCO2 41.7 mmHg (35.0-45.0); PO2 86.9 mmHg (75.0-100.0); pH 7.417 (7.340-7.450)
[2018-10-25] VITALS: BP 132/65
[2018-10-25 04:00] VITALS: BP 124/67
[2018-10-25 04:12] LABS: HEMATOCRIT 34.2 % (37.0-47.0); HEMOGLOBIN 11.3 gm/dL (12.0-15.0); MCH 28.9 pg (26.0-34.0); MCV 87.5 fL (80.0-100.0); MPV 9.5 fl. (7.2-11.1); RBC 3.91 mil/uL (4.20-5.00); RDW-CV 16.3 % (10.5-14.5); WBC 6.9 thou/uL (4.0-11.0)
[2018-10-25 04:27] LABS: ANION GAP 3 mmol/L (7-16); BUN 23 mg/dL (7-18); CALCIUM 8.2 mg/dL (8.5-10.1); CHLORIDE 107 mmol/L (98-107); CHOLESTEROL 204 mg/dL (<200); CO2 28 mmol/L (21-32); CREATININE 1.1 mg/dL (0.6-1.3); GLUCOSE 81 mg/dL (70-99); HDL CHOLESTEROL 50 mg/dL (>40); LDL CHOLESTEROL 131 mg/dL (<100); POTASSIUM 4.3 mmol/L (3.5-5.1); SODIUM 138 mmol/L (136-145); TC:HDL 4.1 Ratio (Not establshd); TRIGLYCERIDE 117 mg/dL (<150); VLDL 23 mg/dL (<40)
[2018-10-25 04:52] LABS: SERUM ASSESSMENT CLEAR
--- NOTE | 2018-10-25 06:00 | NUR ---
PATIENT SLEPT MOST OF THE NIGHT. IV FLUIDS CONTINUE TO INFUSE ORDERED. PATIENT HAS BEEN A LITTLE FORGETFUL THIS SHIFT. UMBERTOTENT HAS HAD NO COMPLAINTS OF PAIN. WILL CONTINUE TO MONITOR.
[2018-10-25 08:00] VITALS: BP 143/65
[2018-10-25 12:15] VITALS: BP 131/54
--- NOTE | 2018-10-25 13:33 | 2DMMODE ---
[place] [address] 2 D/M-MODE ECHOCARDIOGRAM Name: CHAO HERRERA Room: [address] IN [facility]#: [id number] Admission: 10/24/18 Attend Phys: Sofi Flores MD Discharge: Date of : 34 Date of Service: 10/25/18 1332 Report #: [id number] THIS REPORT FOR: //name// APPROVED REPORT Study performed: 10/25/2018 10:26:13 EXAM: Comprehensive 2D, Doppler, and color-flow Echocardiogram Patient Location: In-Patient Room #: [facility] Status: routine BSA: 1.75 HR: 71 bpm BP: 143/65 mmHg Rhythm: NSR Other Information Study Quality: Good Indications Syncope Echo Enhancing Agent Indication: Rule out Shunt Agent(s) / Amount(s) Used: Agitated Saline 10 cc 2D Dimensions IVSd: 10.31 (7-11mm) LVOT Diam: 21.45 (18-24mm) LVDd: 50.94 mm PWd: 9.52 (7-11mm) Ascending Ao: 29.14 (22-36mm) LVDs: 35.36 (25-40mm) Aortic Root: 30.78 mm Volumes Left Atrial Volume (Systole) LA ESV Index: 34.70 mL/m2 Aortic Valve AoV Peak Roc.: 1.24 m/s AO Peak Gr.: 6.12 mmHg LVOT Max P.46 mmHg AO Mean Gr.: 3.41 mmHg LVOT Mean P.28 mmHg LVOT Max V: 0.78 m/s AO V2 VTI: 26.49 cm LVOT Mean V: 0.52 m/s NEL (VTI): 2.46 cm2 LVOT V1 VTI: 18.03 [place] [address] 2 D/M-MODE ECHOCARDIOGRAM Name: CHAO HERRERA Room: [address]#: [id number] Admission: 10/24/18 Attend Phys: Sofi Flores MD Discharge: Date of : 34 Date of Service: 10/25/18 1332 Report #: [id number] Mitral Valve E/A Ratio: 0.78 MV Decel. Time: 221.70 ms MV E Max Roc.: 0.82 m/s MV PHT: 64.29 ms MVA (PHT): 3.42 cm2 TDI E/Lateral E': 5.86 E/Medial E': 8.20 Medial E' Roc.: 0.10 m/s Lateral E' Roc.: 0.14 m/s Pulmonary Valve PV Peak Roc.: 0.87 m/s PV Peak Gr.: 3.05 mmHg Left Ventricle The left ventricle is normal size. There is normal LV segmental wall motion. There is normal left ventricular wall thickness. Left ventricular systolic function is normal. LVEF is 55-60%. Grade I - abnormal relaxation pattern. Right Ventricle The right ventricle is normal size. The right ventricular systolic function is normal. Atria The left atrium size is normal. Interatrial septum is intact without evidence of ASD or PFO. The right atrium size is normal. Aortic Valve The aortic valve is normal in structure. No aortic regurgitation is present. There is no aortic valvular stenosis. Mitral Valve The mitral valve is normal in structure. Mild mitral regurgitation. No evidence of mitral valve stenosis. Tricuspid Valve The tricuspid valve is normal in structure. Trace tricuspid regurgitation. Pulmonic Valve The pulmonary valve is normal in structure. There is no pulmonic valvular regurgitation[place] [address] 2 D/M-MODE ECHOCARDIOGRAM Name: CHAO HERRERA Room: [address] IN [facility]#: [id number] Admission: 10/24/18 Attend Phys: Sofi Flores MD Discharge: Date of : 34 Date of Service: 10/25/18 1332 Report #: [id number] The aortic root is normal in size. IVC is normal in size and collapses >50% with inspiration. Pericardium There is no pericardial effusion. <Conclusion> The left ventricle is normal size. There is normal left ventricular wall thickness. Left ventricular systolic function is normal. LVEF is 55-60%. Grade I - abnormal relaxation pattern. Interatrial septum is intact without evidence of ASD or PFO. Mild mitral regurgitation. IVC is normal in size and collapses >50% with inspiration. <ELECTRONICALLY SIGNED> By: Chauncey Laird MD, FACC 10/25/18 133 133 31 Chauncey Laird MD, FACC /INF
--- NOTE | 2018-10-25 13:37 | EKG ---
[place] [address] ELECTROCARDIOGRAM REPORT Name: CHAO HERRERA Room: [address] ADM IN .R.#: [id number] Admission: 10/24/18 Attend Phys: Sofi Flores MD Discharge: Date of : 32 Report #: [id number] THIS REPORT FOR: //name// [facility] ED Test Date: 2018-10-24 Test Time: 14:22:45 Pat Name: CHAO HERRERA Department: Room: [facility] Gender: F News Library Director: : 1930 Requested By: Kee Hill Order Number: [id number] MD: Chauncey Laird Measurements Intervals [place] Rate: 73 P: 6 MS: 139 QRS: -26 QRSD: 88 T: 34 QT: 386 QTc: 426 Interpretive Statements Sinus rhythm Atrial premature complex Abnormal R-wave progression, late transition Left ventricular hypertrophy, by voltage Inferior infarct, old Baseline wander in lead(s) V1,V6 Compared to ECG 10/16/2018 13:15:39 Atrial premature complex(es) now present Left ventricular hypertrophy now present Sinus tachycardia no longer present Myocardial infarct finding still present Electronically Signed On 10-25-2018 13:37:44 CDT by Chauncey Laird [email or web address] <ELECTRONICALLY SIGNED> By: Chauncey Laird MD, [facility] 10/25/18 1337 1422 1422 Chauncey Laird MD, [facility] /EPI
--- NOTE | 2018-10-25 16:19 | NUR ---
SHIFT NOTE - PT UNABLE TO TOLERATE MRI THIS MORNING. REC ORDER FROM FOR ATIVAN IV. PT RETURNED BACK FROM MRI CONFUSED, DTR AT BEDSIDE. 1400 - PT ASLEEP. WILL CONTINUE TO MONITOR.
[2018-10-25 17:13] VITALS: BP 146/49
[2018-10-26 00:30] VITALS: BP 134/61
[2018-10-26 04:35] VITALS: BP 135/87
--- NOTE | 2018-10-26 06:24 | NUR ---
PATIENT SLEPT PART OF THE NIGHT. PATIENT HAS BEEN VERY CONFUSED AND FORGETFUL. TEARFUL AT TIMES BECAUSE SHE DOES KNOW WHERE SHE IS. IV FLUIDS CONTINUE TO INFUSE ORDERED. WILL CONTINUE TO MONITOR.
[2018-10-26 07:51] VITALS: BP 168/71
--- NOTE | 2018-10-26 10:16 | CON ---
[address] [address] CONSULTATION Name: CHAO HERRERA Room: [address] IN ..#: [id number] Admission: 10/24/18 Attend Phys: Sofi Flores MD Discharge: Date of : 32 Report #: [id number] THIS REPORT FOR: //name// CC: Reid Blazesabina Sofi Flores DATE OF SERVICE: 10/25/2018 HISTORY OF PRESENT ILLNESS: This is an 87-year-old female patient who was evaluated by me for stroke-like symptoms. I talked to the daughter and she indicated that this patient lives at home. It looks like the caregiver comes and is with her several hours a day. Her memory is poor. She was admitted with what looks like encephalopathy. She came back because somebody noticed a facial droop on the left side. She was admitted. When I saw this patient, she just had Ativan. She was jerking. Apparently, she had similar reaction to Ativan in the past. She does have a history of anxiety. REVIEW OF SYSTEMS: Also indicate that the patient's oxygen saturation was low and she was recommended home oxygen at one time. She has bilateral knee replacement and she has chronic kidney disease. She has a shoulder surgery in the past. She has a history of hypertension. This was her relevant 14-point review of system. PAST MEDICAL HISTORY: Negative for any stroke. FAMILY HISTORY: Negative for early age stroke. SOCIAL HISTORY: She lives by herself, but the daughter helps a lot. PHYSICAL EXAMINATION: The patient's examination indicate that it was not possible to examine the patient. When I asked her what month it is, she could not tell me, she could not tell me what hospital she is in. I tried to do the cranial nerve examination, she did not cooperate. She moves all four extremities and she also appeared to be having some jerking movement. There was no meningeal sign. There is no carotid bruit. Cardiac examinations appear unremarkable. No respiratory difficulty was noticed except her baseline. She is a moderately built individual. Her blood pressure is 131/54, respirations 16, pulse is 84 and temperature is 97.2. WBC count is 6.9. Protime is normal. She was sent down for MRI and MRA. She did not finish it even after Ativan. MRI demonstrates occipital lobe CVA, but that will not correlate with the patient's clinical symptoms of left-sided weakness. IMPRESSION: 1. [place] [address] CONSULTATION Name: CHAO HERRERA Dilcia Room: [address]#: [id number] Admission: 10/24/18 Attend Phys: Sofi Flores MD Discharge: Date of : 32 Report #: [id number] 2. By history, she has left-sided facial droop. That will not correlate with the patient's stroke. 3. She needs workup for stroke. 4. She also has altered mental status and what appeared to be significant jerking of all four extremities. She needs further workup for that and we will also get an EEG done in that regard. Since she could not do an MRI and her kidney function is borderline, workup is going to be difficult, we will do a carotid Doppler and an EEG in this patient and after that we will review that workup and then decide what further workup needs to be done. Dr. Zarate will follow up this patient with you from tomorrow. <ELECTRONICALLY SIGNED> By: Lucho Borjas MD 10/26/18 1016 1316 0151Pcarmina Borjas MD /nt
[2018-10-26 12:00] VITALS: BP 142/73
--- NOTE | 2018-10-26 12:54 | NUR ---
INITIAL ASSESSMENT: Pt evaluated for d/c planning needs. Reviewed chart and spoke with nurse, pt and daughter Eva Sierra. Pt has history of dementia and is living alone in a house. According to pt's daughter, pt has lifeline which she does not use. Pt has walker and cane, but does not remember to use them. Family has hired private duty caregiver for several hours a day. Caregiver fixes meals for pt or family supplies meals. Pt does not cook. Discussed recommendation of rehab doctor of pt requiring 24/7 supervision. Dtr said they are not able to provide 24 hour/day supervision. Discussed assisted living or senior care with dtr. She said pt has expressed in the past that she does not want to live in termite control servicer care. Also spoke at length with dtr about speaking with elder care criminal defense attorney re: stocks & bonds and house. Pt owns house with transfer on to grandchildren. Encouraged daughter several times to speak with elder care criminal defense attorney re: assets and Medicaid eligibility if family is thinking about pt moving to [place] or LTC. Dtr said that they had spoken with elder care criminal defense attorney in the past about pt's prior to his . Dtr said that she was told by insurance ([employer]) that any facility would accept that accepts Medicare. Explained that only certain facilities had contract with [employer]. Dtr will make decision re: d/c options.
[2018-10-26 16:00] VITALS: BP 118/63
--- NOTE | 2018-10-26 16:44 | NUR ---
ASSESSMENT COMPLETE. PT ORIENTED TO SELF. PT IS FORGETFUL. PT HAS PT/OT ORDERED, PENDING REHAB OR SNF FOR DC. NEURO CONSULT AND ROUNDED ON PATIENT. EEG AND US CAROTIDS WNL. PT IS ON ROOM AIR, VSS. PT IS FALL RISK, BED ALARM ON. IV FLUIDS INFUSING. DENIES PAIN AND N/V. SEE ASSESSMENT AND VITALS FOR OTHER DETAILS. CALL LIGHT WITHIN REACH, WILL CONTINUE PLAN OF CARE
[2018-10-26 20:20] VITALS: BP 145/78
[2018-10-27 00:54] VITALS: BP 145/62
[2018-10-27 04:00] VITALS: BP 179/72
--- NOTE | 2018-10-27 05:48 | NUR ---
PT UP IN CHAIR AT START OF SHIFT VISITING WITH DAUGHTER. HAS SLEPT WELL OVERNIGHT WITHOUT COMPLAINTS OF PAIN OR PROBLEMS, STATES SHE JUST WANTS TO GO HOME. UP WITH ASSIST OF ONE TO BATHROOM TO VOID OVERNIGHT. TELE SR, PAC. NO LABS THIS MORNING. MARIBELL TRAMMELL. ROOM AIR. HAS SOME RIGHT SIDED VISION DEFICITS DUE TO STROKE. ABLE TO USE CALL LITE AND MAKE NEEDS KNOWN. [place]AB [place], A[place]ING INSURANCE. CALL LITE IN EASY REACH AND BED ALARM ON FOR SAFETY.
[2018-10-27 07:51] VITALS: BP 140/74
[2018-10-27 16:23] VITALS: BP 141/90
--- NOTE | 2018-10-27 16:43 | NUR ---
ASSESSMENT COMPLETE. PT TEARFUL MOST OF THE DAY. PRN ANXIETY MEDICATIONS GIVEN. PT CONFUSED AND FORGETFUL MOST OF THE DAY. PT PLAN TO DC TO REHAB ONCE INSURANCE AUTH IS DONE. PT HAS UTI. PT/OT WITH PATIENT TODAY. DENIES PAIN AND N/V. PT IS ON ROOM AIR, VSS. PT HAS IV RIGHT AC, SALINE LOCKED. PT IS FALL RISK, BED ALARM ON. PT AT NURSES STATION IN CHAIR PART OF THE DAY TO ENCOURAGE COMMUNICATION AND DISTRACTION. PT HAS FAMILY AT BEDSIDE NOW. UP ONE ASSIST WITH WALKER AND GAIT BELT. SEE ASSESSMENT AND VITALS FOR OTHER DETAILS. CALL LIGHT WITHIN REACH, WILL CONTINUE PLAN OF CARE
[2018-10-27 20:00] VITALS: BP 133/57
[2018-10-28 00:59] VITALS: BP 132/53
[2018-10-28 04:30] VITALS: BP 112/52
--- NOTE | 2018-10-28 07:40 | NUR ---
PT SLEPT WELL OVERNIGHT WITHOUT COMPLAINTS OF PAIN OR PROBLEMS. AM LABS DRAWN. ABLE TO USE CALL LITE AND MAKE NEEDS KNOWN. BED ALARM ON FOR SAFETY. TELE SR PACS. MARIBELL TRAMMELL IV. R SIDE VISION DEFICITS. AWAITING INSURANCE APPROVAL FOR DISCHARGE TO REHAB.
[2018-10-28 07:50] VITALS: BP 130/64
[2018-10-28 16:18] VITALS: BP 125/66
--- NOTE | 2018-10-28 17:58 | NUR ---
RESUMED CARE OF PATIENT, REPORT RECIEVED FROM JACOBO MUSA. I CONCUR WITH HER DOCUMENTATION. PT REPORTED HAVING A HEADACHE, DR NOTIFIED, TYLENOL GIVEN PER ORDERS. WILL CONTINUE WITH PLAN OF CARE.
[2018-10-28 20:20] VITALS: BP 124/53
[2018-10-29 00:22] VITALS: BP 117/57
[2018-10-29 04:12] VITALS: BP 116/70
--- NOTE | 2018-10-29 04:54 | NUR ---
PT SLEPT WELL OVERNIGHT. RN HOME CARE EQUAL, NO FACIAL DROOP, LEG STRENGTH GOOD AND EQUAL. TELE SR WITH OCC PAC. AM LABS DRAWN. UP WITH ASSIST TO BR TO VOID. RIGHT SIDE VISION DEFICIT NOTED.RAC SL. ROOM AIR SAT 96%, CM FOLLOWING FOR DISCHARGE PLAN. ABLE TO USE CALL LITE AND MAKE NEEDS KNOWN. BED ALARM ON FOR SAFETY.
[2018-10-29 08:00] VITALS: BP 128/78
[2018-10-29 12:08] VITALS: BP 148/76
--- NOTE | 2018-10-29 15:22 | NUR ---
CAKE MAKER: MET WITH PATIENT AND DAUGHTER. ANSWERED QUESTIONS, PROVIDED SUPPORT. PATIENT SITTING IN CHAIR, TEARFUL AT TIMES. CONCERNED ABOUT VISION AND NEXT STEPS.
--- NOTE | 2018-10-29 15:47 | NUR ---
FOLLOWING PATIENT ALONG WITH DR. AGUILERA FOR POSSIBLE REHAB ADMISSION. PATIENT HAS BEEN TENTATIVELY ACCEPTED TO REHAB PENDING INSURANCE AUTHORIZATION. NOTIFIED CM, DANIELLE OF ACCEPTANCE PENDING INSURANCE AUTH.
--- NOTE | 2018-10-29 16:45 | NUR ---
SW received call from Laury Cody [facility] Camera Repairman regarding pending status for pt to admit to inpt rehab, pending insurance auth. SW to continue to follow to assist with safe dc planning.
[2018-10-29 16:48] VITALS: BP 155/84
--- NOTE | 2018-10-29 17:39 | NUR ---
PT SITTING IN CHAIR MOST OF SHIFT. PT PLEASANTLY CONFUSED AND OFTEN TEARFUL. TOLERATING PO WELL. VOIDING GOOD URINE OUTPUT. UP IN ROOM WITH SB ASSIST. PLAN TO GO TO REHAB IN AM
[2018-10-29 20:30] VITALS: BP 133/70
[2018-10-30 08:10] VITALS: BP 157/79
--- NOTE | 2018-10-30 16:41 | NUR ---
SW received call from Laury Salas, vocational rehabilitation teacher stating that pt insurance denied inpt rehab but offered peer to peer option and Dr Cho willing to call to complete peer to peer. SW to continue to follow to assist with safe dc planning.
[2018-10-30 17:43] VITALS: BP 145/74
--- NOTE | 2018-10-30 18:42 | NUR ---
PT A&O X4. PT SAO2 92% RA IN THE AM. PT WAS FEELING ANXIOUS IN THE AM, SHE STATED "I AM FEELING ANTSY THIS MORNING". PT AMBULATED JUDGE WAY WITH WALKER, STANDY BY ASSIST. PT TO BE DC'D TO REHAB, PENDING APPROVAL.
[2018-10-31 00:30] VITALS: BP 134/71
[2018-10-31 03:52] VITALS: BP 123/52
[2018-10-31 04:15] LABS: HEMATOCRIT 33.4 % (37.0-47.0); HEMOGLOBIN 10.8 gm/dL (12.0-15.0); MCH 28.2 pg (26.0-34.0); MCHC 32.4 g/dL (28.0-37.0); MCV 87.1 fL (80.0-100.0); MPV 9.3 fl. (7.2-11.1); RBC 3.84 mil/uL (4.20-5.00); WBC 6.6 thou/uL (4.0-11.0)
[2018-10-31 04:47] LABS: ALBUMIN 2.4 g/dL (3.4-5.0); CALCIUM 8.4 mg/dL (8.5-10.1); CREATININE 0.8 mg/dL (0.6-1.3); POTASSIUM 3.8 mmol/L (3.5-5.1); TOTAL BILIRUBIN 0.2 mg/dL (<0.1-1.0); TOTAL PROTEIN 5.8 g/dL (6.4-8.2)
--- NOTE | 2018-10-31 05:56 | NUR ---
PATIENT SLEPT MOST OF THE NIGHT. IV REMAINS SALINE LOCKED. UMBERTOTENT IS POSSIBLY GOING TO REHAB TODAY IF INSURANCE GETS APPROVED. WILL CONTINUE TO MONITOR.
[2018-10-31 08:10] VITALS: BP 152/71
[2018-10-31 12:00] VITALS: BP 124/68
--- NOTE | 2018-10-31 14:25 | NUR ---
Nutrition: Pt assessed for LOS. Will go to Rehab soon. Admitted with UTI, weakness. 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 RX: aspirin, D3, MVI. Heart Healthy diet ordered. Wt: 159#. Alb 2.4, prealb 21.3. No nutrition interventions needed at this time. Mild risk. Will follow on rehab unit.
[2018-10-31 16:00] VITALS: BP 124/67
--- NOTE | 2018-10-31 16:58 | NUR ---
Peer to peer did not overturn insurance decision to deny pt inpt rehab, SW discussed with family who wants to call for an appeal of that decision. SW to provide number as soon as known. SW discussed SNF options, pt/pt dtr still want to appeal but would consider [facility] SNF if the appeal does not provide approval results. SW to continue to follow to assist with safe dc planning. (Pt emotional about waiting for placement.)
--- NOTE | 2018-10-31 18:34 | NUR ---
PT A&O X4. PT ANXIOUS AND TEARFUL THIS AM. OT/PT WORKED WITH PT. PT PERFORMED SELFCARE. MEDS GIVEN SCHEDULED. PT AWAITING DC TO INPATIENT REHAB, PENDING APPROVAL.
[2018-11-01 00:20] VITALS: BP 152/68
[2018-11-01 03:55] VITALS: BP 149/62
--- NOTE | 2018-11-01 06:47 | NUR ---
PATIENT SLEPT MOST OF THE NIGHT. IV REMAINS SALINE LOCKED. PATIENT HAD NO COMPLAINTS OF PAIN. PATIENT WAS GIVEN ANXIETY MEDICINE ONCE THIS SHIFT. WILL CONTINUE TO MONITOR.
[2018-11-01 07:21] VITALS: BP 156/85
[2018-11-01] MEDS ORDERED: ATORVASTATIN CA20 MG PO (10:02)
[2018-11-01] MEDS ORDERED: HYDROXYZINE HCL25 M1 PO (10:02)
--- NOTE | 2018-11-01 15:27 | NUR ---
SPOKE WITH DTMaciel MACKENZIE [phone]. SHE SAID SHE HAD TALKED WITH THE INSURANCE COMPANY TO REQUEST AN APPEAL OF THE DENIAL FOR INPATIENT REHAB. SHE WAS TOLD THAT INFORMATION NEEDED TO BE FAXED IN TO THE MEDICALLY [facility]ECES[facility] REASONS THE PATIENT NEEDS INPATIENT REHAB. PHONE NUMBER [phone], [facility], FAX [phone]. INFORMATION GIVEN TO BULL DRIVER, SHE WILL CONTACT INSURANCE COMPANY TO FOLLOW UP ON FAMILY INITIATED APPEAL.
[2018-11-01 16:00] VITALS: BP 111/72
--- NOTE | 2018-11-01 17:06 | NUR ---
ASSESSMENT COMPLETE. PT ALERT AND ORIENTED X4, FORGETFUL AT TIMES. PT AMBULATED HALLS WITH PHYSICAL THERAPY THIS MORNING. PT DENIES PAIN AND N/V. PT PT STANDBY ASSIST WITH WALKER TO BATHROOM. PT HAS NO OTHER CONCERNS AT THIS TIME. SEE ASSESSMENT AND VITALS FOR OTHER DETAILS. CALL LIGHT WITHIN REACH, WILL CONTINUE PLAN OF CARE
[2018-11-01 20:20] VITALS: BP 139/60
--- NOTE | 2018-11-02 06:13 | NUR ---
ASSUMED PATIENT CARE AT 1900. PATIENT ALERT AND ORIENTED TIMES FOUR BUT CAN BE CONFUSED AND FORGETFUL AT TIMES. NO COMPLAINTS OF PAIN OR DISCOMFORT NOTED. PAINTER INTERIOR FINISH AND HOURLY ROUNDING COMPLETED DOCUMENTED. FALL LRISK PRECAUTIONS IN PLACE
[2018-11-02 07:51] VITALS: BP 137/56
[2018-11-02 15:30] VITALS: BP 143/67
--- NOTE | 2018-11-02 15:57 | NUR ---
ASSESSMENT COMPLETE. PT ALERT AND ORIENTED X4. PT HAD FAMILY DURING THE DAY. AMBULATED WITH PHYSICAL THERAPY. VSS. DENIES PAIN AND N/V. PT IS FALL RISK, CHAIR ALARM ON. TOLERATING ALL MEALS. SEE ASSESMENT AND VITALS FOR OTHER DETAILS. CALL LIGHT WITHIN REACH, WILL CONTINUE PLAN OF CARE
--- NOTE | 2018-11-02 16:36 | NUR ---
XIOMARA followed up with Laury [employer] who faxed needed updates to insurance and they are reviewing the appeal of the denial of the denial of the peer to peer. The insurance told Laury that they will contact her on Monday with a response. XIOMARA informed pt dtr. SW to continue to follow.
[2018-11-03] VITALS: BP 132/59
[2018-11-03 07:45] VITALS: BP 161/91
[2018-11-03 15:43] VITALS: BP 133/66
--- NOTE | 2018-11-03 17:33 | NUR ---
REHAB REMAINS PENDING. PATIENT UP TO CHAIR MOST OF SHIFT. PATIENTS SISTER HERE ALL MORNING AND AFTERNOON. PATIENT TEARFUL THIS AFTERNOON AFTER DR. GARCIA ROUNDED, PATIENT STATED SHE DIDNT UNDERSTAND WHAT THE PLAN WAS FOR HER, THIS NURSE INFORMED PATIENT OF PLAN OF CARE.
[2018-11-03 19:45] VITALS: BP 119/67
--- NOTE | 2018-11-04 07:43 | NUR ---
PT SLEPT MOST OF SHIFT. ASSESSMENT DOCUMENTED. MEDS GIVEN PER -OCT. NO IV ACCESS THIS SHIFT. NO REPORTS OF PAIN THIS SHIFT. FALL PRECAUTIONS IN PLACE. WILL CONTINUE WITH PLAN OF CARE.
[2018-11-04 08:00] VITALS: BP 141/67
[2018-11-04 15:00] VITALS: BP 116/73
--- NOTE | 2018-11-04 18:52 | NUR ---
PATIENT UP IN CHAIR ALL SHIFT. ASSISTED TO BATHROOM AND TO AMBULATE IN ROOM. PATIENT TEARFUL AFTER TALKING TO DR. GARCIA, ONE TIME DOSE OF XANAX ORDERED AND GIVEN. PATIENT VISITING WITH DAUGHTER AT THIS TIME. REHAB PENDING.
[2018-11-04 20:00] VITALS: BP 121/69
--- NOTE | 2018-11-05 05:45 | NUR ---
PT SLEPT MOST OF SHIFT. ASSESSMENT DOCUMENTED. MEDS GIVEN PER E-OCT. NO IV ASSESS THIS SHIFT. NO REPORTS OF PAIN OR NAUSEA. FALL PRECAUTIONS IN PLACE. WILL CONTINUE WITH PLAN OF CARE.
[2018-11-05 07:14] VITALS: BP 127/60
--- NOTE | 2018-11-05 10:12 | NUR ---
Pt to dc to [facility] inpt rehab today.
[2018-11-05 11:09] VITALS: BP 127/60
--- NOTE | 2018-11-05 12:53 | NUR ---
ASSESSMENT COMPLETE. PT ALERT AND ORIENTED X4. DENIES PAIN. TOLERATING MEALS AND DENIES N/V. PT IS APPROVED FOR REHAB. PAPERWORK SIGNED BY DOC. TRANSFERRED TO REHAB. SEE ASSESSMENT AND VITALS FOR OTHER DETAILS.
[2018-11-05 13:01] VITALS: BP 127/60
--- NOTE | 2018-11-06 09:53 | EEG ---
[address] [address] EEG STUDY REPORT Name: CHAO HERRERA Room: [address] IN .#: [id number] Admission: 10/24/18 Attend Phys: Sofi Flores MD Discharge: 11/05/18 Date of : 34 Report #: [id number] THIS REPORT FOR: //name// CC: Reid Blazesabina Sofi Flores DATE OF SERVICE: 10/25/2018 This patient is being evaluated for the possibility of seizures and because of the patient's altered mental status. EEG was done by placing the electrode by standard 10-20 system of electrode placement. Both referential and sequential montages were used for recording. Background activity in this patient's EEG is about 8 Hz and 30 microvolt. It was a symmetrical activity. Photic stimulation was unremarkable. The patient became drowsy and that is associated with bilateral slowing, vertex sharp waves. Throughout the record, no active epileptiform activity was noticed. IMPRESSION: This is a moderately abnormal EEG because it is disorganized and poorly formed. That is a nonspecific abnormality, which can occur with encephalopathy, dementia, effect of psychotropic medication, etc. No active epileptiform activity was noticed. Thank you very much for this referral. <ELECTRONICALLY SIGNED> By: Lucho Borjas MD 11/06/18 0953 1854 1918MD darryl Dailey
== END 2018-11-05 13:00 | DRG 64 ==
LOC: M.ERS 13:54 → M.TBA-ER 15:44 → M.3W 15:44
PROVIDERS: Family Medicine; ADMIT Family Medicine
DX: I63.9 Cerebral infarction, unspecified (principal); G92 Toxic encephalopathy; E43 Unspecified severe protein-calorie malnutrition; N39.0 Urinary tract infection, site not specified; F41.9 Anxiety disorder, unspecified; N18.3 Chronic kidney disease, stage 3 (moderate); I12.9 Hypertensive chronic kidney disease with stage 1 through stage 4 chronic kidney disease, or unspecified chronic kidney disease; F32.9 Major depressive disorder, single episode, unspecified; R29.810 Facial weakness; D64.9 Anemia, unspecified; I65.23 Occlusion and stenosis of bilateral carotid arteries; Z96.653 Presence of artificial knee joint, bilateral; H53.461 Homonymous bilateral field defects, right side; R29.6 Repeated falls; F03.90 Unspecified dementia, unspecified severity, without behavioral disturbance, psychotic disturbance, mood disturbance, and anxiety; H54.7 Unspecified visual loss; W18.30XA Fall on same level, unspecified, initial encounter; Z68.28 Body mass index [BMI] 28.0-28.9, adult; Y93.89 Activity, other specified; Y92.89 Other specified places as the place of occurrence of the external cause; Y99.8 Other external cause status; Z79.82 Long term (current) use of aspirin; Z79.899 Other long term (current) drug therapy; Z88.0 Allergy status to penicillin

== ENCOUNTER 2018-11-05 09:44 | Inpatient (IN) | payer OTHER ==
[~2018-11-05] VITALS: Ht 162.6 cm; Wt 75.7 kg
[~2018-11-05 09:44] MED LIST changes: +ATORVASTATIN CA20 MG PO; +HYDROXYZINE HCL25 M1 PO
[2018-11-05 14:15] VITALS: BP 138/67
[2018-11-05 20:00] VITALS: BP 145/74
[2018-11-06 04:40] LABS: HEMATOCRIT 32.4 % (37.0-47.0); HEMOGLOBIN 10.7 gm/dL (12.0-15.0); MCH 28.7 pg (26.0-34.0); MCV 87.1 fL (80.0-100.0); RBC 3.71 mil/uL (4.20-5.00); RDW-CV 16.1 % (10.5-14.5); WBC 6.3 thou/uL (4.0-11.0)
[2018-11-06 04:43] LABS: CALCIUM 8.5 mg/dL (8.5-10.1); CREATININE 0.9 mg/dL (0.6-1.3); POTASSIUM 3.9 mmol/L (3.5-5.1)
[2018-11-06 07:40] VITALS: BP 146/67
[2018-11-06 19:40] VITALS: BP 133/66
[2018-11-07 08:00] VITALS: BP 169/83
[2018-11-07 20:00] VITALS: BP 150/73
[2018-11-08 08:00] VITALS: BP 165/71
[2018-11-08 19:50] VITALS: BP 130/60
[2018-11-09 09:47] VITALS: BP 145/73
[2018-11-09 20:15] VITALS: BP 122/62
[2018-11-10 19:45] VITALS: BP 151/66
[2018-11-11 08:00] VITALS: BP 165/78
[2018-11-11 20:00] VITALS: BP 122/68
[2018-11-12 07:47] VITALS: BP 133/63
[2018-11-12 19:30] VITALS: BP 137/71
[2018-11-13 08:00] VITALS: BP 145/63
[2018-11-13 20:04] VITALS: BP 133/60
[2018-11-14 08:00] VITALS: BP 147/71
[2018-11-14 19:54] VITALS: BP 147/72
[2018-11-15 08:02] VITALS: BP 145/72
[2018-11-15 19:50] VITALS: BP 137/73
[2018-11-16 08:20] VITALS: BP 172/84
[2018-11-16 20:00] VITALS: BP 124/70
[2018-11-17 08:00] VITALS: BP 156/73
[2018-11-17 19:20] VITALS: BP 151/72
[2018-11-18 04:01] LABS: HEMOGLOBIN 11.9 gm/dL (12.0-15.0); MCH 28.8 pg (26.0-34.0); MCHC 33.1 g/dL (28.0-37.0); MCV 87.2 fL (80.0-100.0); MPV 9.3 fl. (7.2-11.1); RBC 4.13 mil/uL (4.20-5.00); RDW-CV 16.3 % (10.5-14.5); WBC 7.1 thou/uL (4.0-11.0)
[2018-11-18 04:21] LABS: CALCIUM 8.9 mg/dL (8.5-10.1); CREATININE 0.8 mg/dL (0.6-1.3); MAGNESIUM 2.1 mg/dL (1.8-2.4); POTASSIUM 3.8 mmol/L (3.5-5.1)
[2018-11-18 08:09] VITALS: BP 182/74
[2018-11-18 20:00] VITALS: BP 132/68
[2018-11-19 08:08] VITALS: BP 140/66
[2018-11-19 19:45] VITALS: BP 130/76
[2018-11-20 07:33] VITALS: BP 146/67
[2018-11-20 19:45] VITALS: BP 116/51
[2018-11-21 07:36] VITALS: BP 162/79
[2018-11-21 12:29] VITALS: BP 162/79
[2018-11-21 14:52] VITALS: BP 162/79
== END 2018-11-21 17:16 | disposition home health service (06) | DRG 947 ==
LOC: M.REH 09:44
PROVIDERS: Family Medicine; ADMIT Physical Medicine & Rehabilitation
DX: R53.81 Other malaise (principal); I63.9 Cerebral infarction, unspecified; E43 Unspecified severe protein-calorie malnutrition; F41.9 Anxiety disorder, unspecified; F32.9 Major depressive disorder, single episode, unspecified; F03.90 Unspecified dementia, unspecified severity, without behavioral disturbance, psychotic disturbance, mood disturbance, and anxiety; R29.6 Repeated falls; N18.3 Chronic kidney disease, stage 3 (moderate); D64.9 Anemia, unspecified; I12.9 Hypertensive chronic kidney disease with stage 1 through stage 4 chronic kidney disease, or unspecified chronic kidney disease; H54.7 Unspecified visual loss; Z96.653 Presence of artificial knee joint, bilateral; N39.3 Stress incontinence (female) (male); R26.9 Unspecified abnormalities of gait and mobility; Z68.28 Body mass index [BMI] 28.0-28.9, adult; Z87.891 Personal history of nicotine dependence; Z87.440 Personal history of urinary (tract) infections; Z79.82 Long term (current) use of aspirin; Z79.899 Other long term (current) drug therapy; Z88.0 Allergy status to penicillin

== ENCOUNTER 2019-02-05 10:58 | Emergency (ER) | payer OTHER ==
[~2019-02-05] VITALS: Ht 162.6 cm; Wt 70.3 kg
[2019-02-05] MEDS ORDERED: LIPITOR 20 MG T20 M1 PO (11:19)
[2019-02-05 11:43] LABS: ABSOLUTE BASOPHILS 0.1 thou/uL (0.0-0.2); ABSOLUTE EOSINOPHILS 0.1 thou/uL (0.0-0.7); ABSOLUTE LYMPHOCYTES 1.1 thou/uL (0.8-5.3); ABSOLUTE MONOCYTES 0.9 thou/uL (0.0-1.2); BASOPHILS 0.7 %; EOSINOPHILS 0.6 %; HEMATOCRIT 38.2 % (37.0-47.0); HEMOGLOBIN 12.7 gm/dL (12.0-15.0); LYMPHOCYTES 11.1 %; MCH 29.2 pg (26.0-34.0); MCHC 33.3 g/dL (28.0-37.0); MCV 87.6 fL (80.0-100.0); MONOCYTES 8.7 %; MPV 9.2 fl. (7.2-11.1); NUCLEATED RBCS 0 /100WBC; PLATELET COUNT* 193 thou/uL (150-400); POLYS 78.9 %; RBC 4.36 mil/uL (4.20-5.00); RDW-CV 14.1 % (10.5-14.5); WBC 10.1 thou/uL (4.0-11.0)
[2019-02-05 11:51] LABS: ANION GAP 7 mmol/L (7-16); APTT 29.6 Seconds (25.0-31.3); BUN 21 mg/dL (7-18); CHLORIDE 103 mmol/L (98-107); CO2 32 mmol/L (21-32); GLUCOSE 102 mg/dL (70-99); POTASSIUM 3.9 mmol/L (3.5-5.1); SODIUM 142 mmol/L (136-145)
[2019-02-05 11:57] LABS: ACETAMINOPHEN < 2 ug/mL (10-30); ALCOHOL < 10 mg/dL (<10); SALICYLATE < 2.8 mg/dL (2.8-20.0)
[2019-02-05 12:03] LABS: ALBUMIN 3.4 g/dL (3.4-5.0); ALKALINE PHOSPHATASE 142 U/L (46-116); LIPASE 68 U/L (73-393); SGOT 20 U/L (15-37); SGPT 27 U/L (30-65); TOTAL BILIRUBIN 0.6 mg/dL (<0.1-1.0); TOTAL PROTEIN 7.3 g/dL (6.4-8.2); TROPONIN-I LEVEL <0.06 ng/mL (<0.06)
[2019-02-05 13:16] LABS: URINE BILIRUBIN NEGATIVE (Negative); URINE BLOOD TRACE (Negative); URINE CLARITY CLEAR; URINE COLOR YELLOW; URINE GLUCOSE-RANDOM NEGATIVE (Negative); URINE KETONES NEGATIVE (Negative); URINE LEUKOCYTES-REFLEX NEGATIVE (Negative); URINE NITRITE-REFLEX NEGATIVE (Negative); URINE PROTEIN NEGATIVE (Negative); URINE UROBILINOGEN 0.2 E.U./dl (0.2-1.0)
[2019-02-05 14:18] LABS: AMP/METHAMP Negative (Negative); BARBITURATES Negative (Negative); BENZODIAZEPINES Negative (Negative); COCAINE Negative (Negative); METHADONE Negative (Negative)
[2019-02-05 14:50] VITALS: BP 123/66
[2019-02-05 14:50] LABS: OPIATES Negative (Negative); PCP Negative (Negative); THC Negative (Negative)
--- NOTE | 2019-02-05 16:27 | EKG ---
[place] [address] ELECTROCARDIOGRAM REPORT Name: CHAO HERRERA Room: [facility]#: [id number] Admission: 02/05/19 Attend Phys: Discharge: 02/05/19 Date of : 34 Report #: [id number] THIS REPORT FOR: //name// [facility] ED Test Date: 2019-02-05 Test Time: 11:38:56 Pat Name: CHAO HERRERA Department: Room: Gender: F Hair Or Beauty Salon Assistant: TARIQ : 1930 Requested By: Any Nieves Order Number: [id number] MD: Avelino Vyas Measurements Intervals [place] Rate: 66 P: 66 MN: 157 QRS: -25 QRSD: 110 T: 67 QT: 404 QTc: 424 Interpretive Statements Sinus rhythm Low voltage, precordial leads Left ventricular hypertrophy Nonspecific T abnormalities, lateral leads Compared to ECG 10/24/2018 14:22:45 Low QRS voltage now present T-wave abnormality now present Atrial premature complex(es) no longer present Myocardial infarct finding no longer present Electronically Signed On 02-05-2019 16:27:21 CDT by Avelino Vyas [email or web address] <ELECTRONICALLY SIGNED> By: Avelino Vyas MD, [facility] 02/05/19 1627 1138 1138 Avelino Vyas MD, FAC /EPI
== END 2019-02-05 14:52 | disposition short-term general hospital (02) ==
LOC: M.ERS 10:58
PROVIDERS: Nurse Practitioner Family
DX: S32.040A Wedge compression fracture of fourth lumbar vertebra, initial encounter for closed fracture (principal); R41.82 Altered mental status, unspecified; F41.9 Anxiety disorder, unspecified; F32.9 Major depressive disorder, single episode, unspecified; I12.9 Hypertensive chronic kidney disease with stage 1 through stage 4 chronic kidney disease, or unspecified chronic kidney disease; N18.9 Chronic kidney disease, unspecified; F03.90 Unspecified dementia, unspecified severity, without behavioral disturbance, psychotic disturbance, mood disturbance, and anxiety; Z86.73 Personal history of transient ischemic attack (TIA), and cerebral infarction without residual deficits; Z79.899 Other long term (current) drug therapy; W18.39XA Other fall on same level, initial encounter; Y93.89 Activity, other specified; Y92.89 Other specified places as the place of occurrence of the external cause; Y99.8 Other external cause status

== ENCOUNTER 2020-05-28 17:43 | Emergency (ER) | payer MEDICARE, MEDICAID ==
[~2020-05-28] VITALS: Ht 160 cm; Wt 64.6 kg
[~2020-05-28 17:43] MED LIST changes: -EFFEXOR 5050 MG/1 T1 PO; +EFFEXOR XR37.5 MG PO; +LIPITOR 20 MG T20 M1 PO
[2020-05-28] MEDS ORDERED: LATANOPROST 0.2.5 ML OPHTHALMIC (18:16)
[2020-05-28] MEDS ORDERED: DORZOLAMIDE-TI1 EACH OPHTHALMIC (18:16)
[2020-05-28] MEDS ORDERED: BUSPIRONE HCL15 MG PO (18:17)
[2020-05-28 18:21] LABS: ABSOLUTE BASOPHILS 0.1 thou/uL (0.0-0.2); ABSOLUTE LYMPHOCYTES 1.6 thou/uL (0.8-5.3); ABSOLUTE MONOCYTES 0.4 thou/uL (0.0-1.2); ABSOLUTE NEUTROPHILS 5.9 thou/uL (1.6-8.1); EOSINOPHILS 0.5 %; HEMOGLOBIN 13.6 gm/dL (12.0-15.0); LYMPHOCYTES 19.3 %; MCH 29.7 pg (26.0-34.0); MCHC 33.1 g/dL (28.0-37.0); MCV 89.6 fL (80.0-100.0); MONOCYTES 5.2 %; MPV 9.2 fl. (7.2-11.1); NUCLEATED RBCS 0 /100WBC; PLATELET COUNT* 232 thou/uL (150-400); RBC 4.57 mil/uL (4.20-5.00); RDW-CV 13.8 % (10.5-14.5)
[2020-05-28 18:29] LABS: CALCIUM 9.2 mg/dL (8.5-10.1); POTASSIUM 4.5 mmol/L (3.5-5.1)
[2020-05-28 19:45] VITALS: BP 129/90
--- NOTE | 2020-05-29 11:19 | EKG ---
[place] [address] ELECTROCARDIOGRAM REPORT Name: ADRIANA HERRERATY Dilcia Room: [facility]#: [id number] Admission: 05/28/20 Attend Phys: Discharge: 05/28/20 Date of : 34 Date of Service: 05/28/201821 Report #: [id number] THIS REPORT FOR: //name// [facility] ED Test Date: 2020-05-28 Test Time: 18:22:10 Pat Name: CHAO HERRERA Department: Room: Gender: Automatic Fancy Machine Operator: [facility] : 1930 Requested By: Any Nieves Order Number: [id number] MD: Dominik Chavis Measurements Intervals [place] Rate: 86 P: 42 TX: 161 QRS: -9 QRSD: 100 T: 26 QT: 358 QTc: 429 Interpretive Statements Sinus rhythm poor r wave progression artifact noted Probable left ventricular hypertrophy Inferior infarct, old Lateral leads are also involved Compared to ECG 02/05/2019 11:38:56 no change Electronically Signed On 05-29-2020 11:18:48 CDT by Dominik Chavis [email or web address] <ELECTRONICALLY SIGNED> By: Dominik Chavis MD, FACC 05/29/20 1118 1822 182 Dominik Chavis MD, [facility] /EPI
== END 2020-05-28 19:45 | disposition short-term general hospital (02) ==
LOC: M.ERS 17:43
PROVIDERS: Nurse Practitioner Family
DX: S02.2XXA Fracture of nasal bones, initial encounter for closed fracture (principal); Z20.828 Contact with and (suspected) exposure to other viral communicable diseases; S12.401A Unspecified nondisplaced fracture of fifth cervical vertebra, initial encounter for closed fracture; S00.83XA Contusion of other part of head, initial encounter; I12.9 Hypertensive chronic kidney disease with stage 1 through stage 4 chronic kidney disease, or unspecified chronic kidney disease; N18.9 Chronic kidney disease, unspecified; Z79.899 Other long term (current) drug therapy; Z88.0 Allergy status to penicillin; Z86.73 Personal history of transient ischemic attack (TIA), and cerebral infarction without residual deficits; W18.39XA Other fall on same level, initial encounter; Y93.89 Activity, other specified; Y92.89 Other specified places as the place of occurrence of the external cause; Y99.8 Other external cause status

== ENCOUNTER 2021-01-03 13:54 | Inpatient (IN) | payer OTHER, MEDICAID ==
[~2021-01-03] VITALS: Ht 162.6 cm; Wt 65.8 kg
--- NOTE | ~2021-01-03 | OP ---
[address] [address] OPERATIVE REPORT Name: JAVIERCHAO Dilcia Room: [address] IN .R.#: [id number] Admission: 01/03/21 Attend Phys: Vu Xie Discharge: Date of : 34 Report #: [id number] THIS REPORT FOR: cc: Reid Osei Steve T. DO Orth, Charles DO ~ DOC #: [id number] Kaiser Mack DO DATE OF SURGERY: 01/08/2021 ORTHOPEDIC SURGERY NOTE PREOPERATIVE DIAGNOSIS: Osteoporotic left distal intra-articular comminuted lateral condyle fracture of the humerus. POSTOPERATIVE DIAGNOSES: Osteoporotic left distal intra-articular comminuted lateral condyle fracture of the humerus. SURGERY PERFORMED: Open reduction and internal fixation of the left distal humerus with [place] plating and screws and K wire suture technique. SURGEON: Kaiser Mack DO ASSISTANTS: 1. Robin. 2. Christopher. ANESTHESIA: General anesthetic. The patient did receive a block as well by Anesthesia. The patient did receive Ancef 1 gram IV piggyback preoperatively, has been also scheduled clindamycin doses. ESTIMATED BLOOD LOSS: 100 mL. SPECIMENS: No specimens COMPLICATIONS: No complications. DRAINS. No drains. GROSS FINDINGS: X-rays and CT scans demonstrate severely comminuted osteoporotic fracture of the lateral condyle of this distal humerus intra-articular involvement. The intraoperative findings did not do justice to the CT as it was more severely comminuted and never expected. The patient post-internal fixation demonstrated as good as reduction as could be with the [address] [place] [address] OPERATIVE REPORT Name: CHAO HERRERA Dilcia Room: [address] IN .R.#: [id number] Admission: 01/03/21 Attend Phys: Vu Xie Discharge: Date of : 32 Report #: [id number] wires, the screws, the plate and even suture technique holding some small fragments in place. SURGERY IN DETAIL: The patient was taken to the operating room and placed on table, given the benefit of general anesthetic. She had a well-padded tourniquet placed on her left upper extremity. She was then rolled onto her right side, secured in place by means of a beanbag technique, underwent a chlorhexidine prep and sterile draping for left elbow surgery. Timeout was called and verified by everyone in the room for the left elbow. Surgery continued. A longitudinal curvilinear incision just radial side of the olecranon extending proximally and distally with a 15 blade scalpel through skin and subcutaneous tissues. I did Esmarch the extremity. I did go ahead and then develop plane between the olecranon and triceps, bring that down across the intra-articular aspect of the joint, clearly opened it up, removed the hematoma, copiously irrigated. Multiple loose fragments of bone were noted within this joint, so I did go ahead and remove those to rigging helper in the reduction. I tried many reduction techniques with clamps or wires and once we got at least a semi-good reduction with the wires and the nlyjb-dj-pruhw type clamps, I did place one interfrag screw across this as best could be and at that point in time, then the [place] lateral condyle plate was affixed across the humerus in routine fashion, locking and nonlocking screws. The intra-articular small fragments were sutured into place, brought out through the holes through the plate and those sutures were tied down. I did support this with 2 additional K-wires and cut paralleling the joint and then one in the supracondylar process area at an angle and cut those off and bent them to 90 degrees and tamped them into position, leaving them internal. Surgery continued with taking x-rays as best I could. One of the screws appeared to be a little prominent, but it was beneath the plate, so I did not have the ability to remove that or back it out any, but should not really cause any major problems. Surgery now continued. Also copiously irrigated in this joint, closed that triceps layer and joint layer with 0 Vicryl in bcwikb-zd-truqj fashion. Subcutaneous tissues were closed with 2-0 Monocryl, 3-0 nylon on the skin. Xeroform, 4 x 4's, Kerlix, soft roll, Jeffry wrap dressing applied. Posterior splint dressing was applied. X-rays were taken to recovery room. I attest I was present for all critical aspects of surgery. Needle, instrument and sponge counts were correct. The tourniquet was released prior to finish the closure. Otherwise, no unusual findings were noted on this patient. Her reduction is as best could be accomplished with the severe involvement of the fracture comminution and her osteoporosis. Kaiser Mack DO CO/VIS [address] [address] OPERATIVE REPORT Name: CHAO HERRERA Room: [address] IN [facility].#: [id number] Admission: 01/03/21 Attend Phys: Vu Xie Discharge: Date of : 34 Report #: [id number] By: 1140 [id number] Mack DO /constantino
[~2021-01-03 13:54] MED LIST changes: +BUSPIRONE HCL15 MG PO; +DORZOLAMIDE-TI1 EACH OPHTHALMIC; +LATANOPROST 0.2.5 ML OPHTHALMIC
[2021-01-03 13:58] VITALS: BP 128/86
[2021-01-03] MEDS ORDERED: SENNA PLUS TAB1 EACH PO (14:05)
[2021-01-03] MEDS ORDERED: DORZOLAMIDE-TI1 EACH OPHTHALMIC (14:07)
[2021-01-03] MEDS ORDERED: ULTRAM 50MG TAB50 MG PO (14:07)
[2021-01-03] MEDS ORDERED: GAS RELIEF80 MG PO (14:08)
[2021-01-03] MEDS ORDERED: MILK OF MA400 MG/5 M PO (14:09)
[2021-01-03 16:15] LABS: ABSOLUTE BASOPHILS 0.1 thou/uL (0.0-0.2); ABSOLUTE EOSINOPHILS 0.1 thou/uL (0.0-0.7); ABSOLUTE LYMPHOCYTES 1.3 thou/uL (0.8-5.3); ABSOLUTE MONOCYTES 0.6 thou/uL (0.0-1.2); ABSOLUTE NEUTROPHILS 8.3 thou/uL (1.6-8.1); BASOPHILS 0.5 %; EOSINOPHILS 0.8 %; HEMATOCRIT 40.4 % (37.0-47.0); HEMOGLOBIN 13.6 gm/dL (12.0-15.0); LYMPHOCYTES 12.2 %; MCH 30.4 pg (26.0-34.0); MCHC 33.7 g/dL (28.0-37.0); MCV 90.3 fL (80.0-100.0); MONOCYTES 6.1 %; MPV 9.6 fl. (7.2-11.1); NUCLEATED RBCS 0 /100WBC; PLATELET COUNT* 216 thou/uL (150-400); POLYS 80.4 %; RBC 4.48 mil/uL (4.20-5.00); RDW-CV 14.4 % (10.5-14.5); WBC 10.3 thou/uL (4.0-11.0)
[2021-01-03 16:23] LABS: CALCIUM 8.9 mg/dL (8.5-10.1); CREATININE 0.9 mg/dL (0.6-1.3); POTASSIUM 4.1 mmol/L (3.5-5.1)
[2021-01-03 16:27] LABS: APTT 27.7 Seconds (25.0-31.3); INR 0.9; PROTIME 9.9 Seconds (9.20-11.50)
[2021-01-03 16:28] LABS: ALBUMIN 3.4 g/dL (3.4-5.0); TOTAL BILIRUBIN 0.2 mg/dL (<0.1-1.0); TOTAL PROTEIN 7.5 g/dL (6.4-8.2)
[2021-01-03 18:16] VITALS: BP 139/77
[2021-01-03 20:00] VITALS: BP 144/77
--- NOTE | 2021-01-04 04:59 | NUR ---
PATIENT SLEPT WELL DURING THIS SHIFT. DAUGHTER CALLED TO CHECK ON PATIENT DURING THIS SHIFT. WAS TOLD PT IS DOING WELL AND SLEEPING AT THIS TIME. REORDERED HOME MEDICATIONS AND DAUGHTER SAID TO HOLD THEM TONIGHT AND LET HER SLEEP THAT SHE FELT PT WOULD BE FINE WITHOUT THEM. PT TOOK OFF SLING AND ATTEMPTED TO REMOVE RATNA WRAP. SLING REPLACED. PILLOW OFFERED TO PUT UNDER ELBOW BUT REFUSED AT THIS TIME. PT ASSISTED WITH TURNS. PT WITH ANTIBIOTICS INFUSING PER ORDER THEN SALINE LOCKED. PT ON O2 @ 2 LITERS PER NASAL CANNULA. FREQUENTLY USED ITEMS AND CALL LIGHT WITHIN REACH. SIDERAILS UPX3 AND BED ALARM ON. WILL CONTINUE TO MONITOR.
[2021-01-04 07:30] VITALS: BP 138/87
[2021-01-04 11:00] VITALS: BP 149/75
[2021-01-04 12:00] VITALS: BP 149/75
--- NOTE | 2021-01-04 13:56 | EKG ---
[place] [address] ELECTROCARDIOGRAM REPORT Name: HERRERACHAO Room: [place] [address] ADM IN [facility].#: [id number] Admission: 01/03/21 Attend Phys: Shailesh Shay Discharge: Date of : 34 Date of Service: 01/03/21 1603 Report #: [id number] THIS REPORT FOR: //name// [facility] ED Test Date: 2021-01-03 Test Time: 16:03:15 Pat Name: CHAO HERRERA Department: Room: [facility] Gender: F Property Field Inspector: : 1930 Requested By: Cristina Sterling Order Number: [id number] MD: Kannan Grullon Measurements Intervals [place] Rate: 98 P: 44 PA: 118 QRS: -17 QRSD: 94 T: 70 QT: 385 QTc: 492 Interpretive Statements Sinus rhythm with frequent and consecutive late occurring PAC Borderline short PA interval Inferior infarct, old Artifact in lead(s) aVR,aVL,V1,V2,V3,V4,V5,V6 Compared to ECG 05/28/2020 18:22:10 Frequent PACs are noted Poor R-wave progression no longer present Myocardial infarct finding still present Electronically Signed On 01-04-2021 13:56:43 CDT by Kannan Grullon [email or web address] <ELECTRONICALLY SIGNED> By: Kannan Grullon MD, [facility] 01/04/21 1356 1603 1603 Kannan Grullon MD, [facility] /EPI
--- NOTE | 2021-01-04 13:59 | EKG ---
[place] [address] ELECTROCARDIOGRAM REPORT Name: HERRERACHAO Room: [place] [address] ADM IN [facility].#: [id number] Admission: 01/03/21 Attend Phys: Shailesh Shay Discharge: Date of : 34 Date of Service: 01/04/21 0849 Report #: [id number] THIS REPORT FOR: //name// [facility] Test Date: 2021-01-04 Test Time: 08:49:34 Pat Name: CHAO HERRERA Department: Room: [facility] Gender: F Employee Training Specialist: BLAINE : 1930 Requested By: Hafsa Horn Order Number: [id number] MD: Kannan Grullon Measurements Intervals [place] Rate: 133 P: 29 GA: 148 QRS: -15 QRSD: 82 T: 140 QT: 355 QTc: 529 Interpretive Statements Sinus tachycardia Inferior infarct, old Lateral leads are also involved Prolonged QT interval Artifact in lead(s) I,II,III,aVR,aVL,aVF,V6 Compared to ECG 05/28/2020 18:22:10 Prolonged QT interval now present Sinus rate has increased Poor R-wave progression no longer present Myocardial infarct finding still present Electronically Signed On 01-04-2021 13:59:28 CDT by Kannan Grullon [email or web address] <ELECTRONICALLY SIGNED> By: Kannan Grullon MD, [facility] 01/04/21 1359 0849 0849 Kannan Grullon MD, [facility] /EPI
--- NOTE | 2021-01-04 14:15 | NUR ---
Patient transferred to this unit. Reviewed previous nurses assessment and agree and will continue care. Call light within reach and all personal belongings.
--- NOTE | 2021-01-04 14:26 | NUR ---
Ortho paged for patient as her daughter is now in room with her.
--- NOTE | 2021-01-04 14:37 | NUR ---
ABRAHAM spoke with Pt's dtr in room. Pt is a LTC resident at [facility]. Pt normally ambulates with a walker, but forgets to use sometimes, which is how this fall occurred. Per dtr, Pt does have some mild cognitive deficits. Hx of [facility] HH. Hx of ARU. Per dtr, Pt may need surgery for fracture, dtr plans to call surgeon office to see if they accept Pt's insurance. Therapies to eval. Pt with Afib RVR, moved from j/s to tele. Plan is back to [facility] at [facility], ABRAHAM spoke with Kendy at LT, they are able to accept Pt back. [facility] p:[phone] f:[phone]
[2021-01-04 20:30] VITALS: BP 134/76
[2021-01-05 00:51] VITALS: BP 162/77
[2021-01-05 04:00] VITALS: BP 153/69
[2021-01-05 04:54] LABS: APTT 33.3 Seconds (25.0-31.3); PROTIME 10.4 Seconds (9.20-11.50)
[2021-01-05 04:57] LABS: ALBUMIN 2.7 g/dL (3.4-5.0); CALCIUM 8.3 mg/dL (8.5-10.1); CREATININE 1.1 mg/dL (0.6-1.3); MAGNESIUM 2.3 mg/dL (1.8-2.4); POTASSIUM 4.2 mmol/L (3.5-5.1); TOTAL BILIRUBIN 0.4 mg/dL (<0.1-1.0); TOTAL PROTEIN 5.9 g/dL (6.4-8.2)
--- NOTE | 2021-01-05 04:59 | NUR ---
PT A&O X 1-2, FORGETFUL. ON RA. MEDS GIVEN ORDERED. PT TAKES PILLS ONE AT A TIME. LT HAND SWOLLEN AND BRUISED, SLING IN PLACE. LUE ON PILLOW. PT DENIED PAIN, REFUSED PAIN MEDS. PT CRIED ONCE AND SAID "SHE DOESNT KNOW WHY SHE CRIES BUT IT IS NOT BECAUSE OF PAIN". BENADRYL GIVEN, PT SLEPT OFF AND ON. HOURLY ROUNDINGS COMPLETED. WILL CONTINUE TO MONITOR.
[2021-01-05 05:04] LABS: HEMATOCRIT 31.4 % (37.0-47.0); MCH 30.6 pg (26.0-34.0); MCHC 34.1 g/dL (28.0-37.0); MCV 89.7 fL (80.0-100.0); MPV 9.7 fl. (7.2-11.1); RBC 3.5 mil/uL (4.20-5.00); RDW-CV 14.1 % (10.5-14.5); WBC 7.7 thou/uL (4.0-11.0)
[2021-01-05 05:13] LABS: HEMOGLOBIN 10.7 gm/dL (12.0-15.0)
[2021-01-05 12:00] VITALS: BP 135/68
--- NOTE | 2021-01-05 14:39 | NUR ---
DAUGHTER UPDATED AT BEDSIDE AND FAMILY WISHES ORTHO TO REPAIR LEFT SHOULDER FRACTURE TOMORROW. IV TEAM STARTED NE IV TODAY AND PO PAIN MEDICATION GIVEN. PT ALSO HAD CARIOLOGY CONSULT TODAY. WILL CONTINUE TO ASSESS.
[2021-01-05 21:04] VITALS: BP 109/63
[2021-01-06] VITALS: BP 106/59
[2021-01-06 04:00] VITALS: BP 114/42
[2021-01-06 04:47] LABS: HEMATOCRIT 28.4 % (37.0-47.0); HEMOGLOBIN 9.5 gm/dL (12.0-15.0); MCH 30.1 pg (26.0-34.0); MCHC 33.5 g/dL (28.0-37.0); MCV 89.9 fL (80.0-100.0); MPV 9.6 fl. (7.2-11.1); RBC 3.16 mil/uL (4.20-5.00); RDW-CV 13.8 % (10.5-14.5); WBC 7.7 thou/uL (4.0-11.0)
[2021-01-06 05:24] LABS: ALBUMIN 2.3 g/dL (3.4-5.0); MAGNESIUM 2.2 mg/dL (1.8-2.4); POTASSIUM 3.8 mmol/L (3.5-5.1); TOTAL BILIRUBIN 0.5 mg/dL (<0.1-1.0)
--- NOTE | 2021-01-06 07:01 | NUR ---
PT IS ABLE TO COMMUNICATE HER NEEDS TO STAFF WITH SOME DIFFICULTY; SHE IS A+OX1 AND IS OFTEN CONFUSED AND/OR TEARFUL. CURRENT PAIN MEDICATION REGIMEN HAS BEEN ADEQUATE FOR CONTROLLING HER PAIN UP TO THIS TIME. SHE HAS BEEN NPO SINCE MIDNIGHT, EXCEPT FOR SIPS WITH MEDS, FOR A LIKELY SURGERY TODAY ON HER LT ARM/ELBOW. DPOA IS GURDEEP (DAUGHTER).
[2021-01-06 08:00] VITALS: BP 122/64
--- NOTE | 2021-01-06 08:00 | NUR ---
AM ASSESSMENT COMPLETE, DEFER TO COMPUTER CHARTING. SUPERVISOR MATTRESS AND BOXSPRINGS TRACKING SR. ALERT ORIENTED TO SELF AND SITUATION. BRUISING AND EDEMA TO LEFT ARM - AND LEFT HIP, LEFT ARM SHOULDER SLING IN PLACE. DENIES PAIN AT THIS TIME, REPOSITIONED PILLOWS FOR SUPPORT, PLEASANT SMILING COOPERATIVE. ROOM AIR, NO SIGN OF RESPIRATORY DISTRESS. CALL LIGHT WITHIN REACH, WILL MONITOR.
--- NOTE | 2021-01-06 10:13 | NUR ---
PLAN OF CARE: NURSING INFORMS OF ORTHO'S PLAN FOR THE PT TO HAVE SX Monday. PLAN REMAINS FOR PT TO RETURN TO [facility] LTC AT D/C. CM FAXED UPDATED CLINICAL INFO TO [facility]. CM WILL REMAIN AVAILABLE TO ASSIST AND FOLLOW NEEDED.
[2021-01-06 12:31] VITALS: BP 125/61
[2021-01-06 17:41] VITALS: BP 120/89
--- NOTE | 2021-01-06 18:08 | NUR ---
HUMANITIES DEPARTMENT CHAIR TRACKING WITH NO CHANGE IN RHYTHM. TEARY AT TIMES DURING SHIFT - REASSURANCE AND PAIN MEDICATION GIVEN. FAMILY IN EARLIER TO VISIT. SLING REMAINS IN PLACE TO LEFT ARM - PURE WICK URINARY CATH PLACED TO ASSIST WITH KEEPING DRY FROM URINARY INCONTINENCE. BED ALARM ON FOR SAFETY. WILL CONTINUE WITH PLAN OF CARE.
[2021-01-06 19:50] VITALS: BP 148/75
[2021-01-07 00:24] VITALS: BP 139/70
[2021-01-07 04:03] VITALS: BP 111/63
--- NOTE | 2021-01-07 04:11 | NUR ---
PT ALERT, ORIENTED TO SELF, VSS ON ROOM AIR, IV SALINE LOCKED, PT REPOSITIONED Q2H. PAIN MED ADMINISTERED ODERED, PRN PAIN MED REFUSED. PUREWICK IN PLACE. PT SLEEPING WELL. PT HAD ONE RUN OF 14 BEATS VT ON TELE MONITOR AT 0120. ASSESSMENTS AND HOURLY ROUNDINGS COMPLETE, WILL CONTINUE TO MONITOR.
[2021-01-07 08:00] VITALS: BP 161/92
[2021-01-07 12:00] VITALS: BP 143/78
--- NOTE | 2021-01-07 13:47 | NUR ---
PLAN OF CARE: CM INFORMED DURING PRIME ROUNDING THAT PT IS NOT A CANDIDATE FOR ARU D/T HER BASELINE CONFUSION. PT MORE APPROPRIATE FOR SNF AT D/C. CM SPOKE TO THE PT'S DTR AND SHE INFORMS THAT SHE DOES NOT WANT THE PT TO RETURN TO [facility] FOR SNF. CM PROVIDED THE PT WITH SNF LIST. PT'S DTR TO LOOK OVER LIST AND CONFIRM CHOICE. PLAN IS FOR PT TO HAVE SURGERY TOMORROW. PT WILL NEED TO WORK WITH PT/OT POST SX TO DETERMINE PT'S ABILITY AND INSURANCE APPROVAL FOR SNF AT D/C. CM WILL REMAIN AVAILABLE TO ASSIST AND FOLLOW NEEDED.
[2021-01-07 16:00] VITALS: BP 139/71
--- NOTE | 2021-01-07 17:50 | NUR ---
PATIENT TRANSFERED FROM TELEMETRY THIS AFTERNOON. PATIENT SETTLED TO ROOM. DAUGHTER AT BEDSIDE. PATIENT ASSITED WITH DINNER AND HAS GOOD APPETITE. PATIENT HAS DENIED NEED FOR PAIN MEDICATION THIS AFTERNOON. PATIENT HAS ICE TO LEFT ARM, HAND IS SWOLLEN. PATIENT DENIES ANY NEEDS AT THIS TIME. BED ALARM ON. CALL LIGHT WITHIN REACH.
--- NOTE | 2021-01-07 19:20 | NUR ---
ASSUMED PT CARE AT 0730, PT AWAKE AND ORIENTED TO SELF ONLY, CONFUSED AND TEARFUL. PT C/O PAIN WHEN BEING MOVED AROUND AND WHEN ASKED IF SHE WANTED PAIN MEDS WOULD SAY YES SO PAIN MEDS GIVEN CHARTED, HARD TO TELL IF RELIEF WAS PROVIDED R/T PT'S TEARFUL STATUS. PT REFUSED TO TAKE MEDS THIS MORNING, WAS SUSPICIOUS OF NURSING STAFF AND HAVING VISUAL HALLUCINATIONS OF OTHER PEOPLE BEING IN THE ROOM AND VERBALIZED WANTING THEM TO GET OUT. TRIED TO ORIENT PT TO CURRENT SITUATION BUT PT DID NOT BELIEVE ANYTHING BEING TOLD TO HER BY ME. PT'S DAUGHTER CAME IN THIS MORNING AND HELPED PT TAKE HER MEDS AND EAT LUNCH. PT DOWNGRADED TO M/S AND TRANSFERRED TO ROOM 104, REPORT GIVEN TO DIMPLE CASE.
[2021-01-07 20:30] VITALS: BP 145/81
[2021-01-08 01:03] VITALS: BP 145/81
[2021-01-08 05:54] VITALS: BP 149/71
--- NOTE | 2021-01-08 06:30 | NUR ---
PT TO SURGERY PER BED ACCOMPANIED BY SURGERY STAFF AND DAUGHTER WITH CHART.
--- NOTE | 2021-01-08 13:24 | NUR ---
Pt to have surgery today. Therapies will need to be ordered post surgery for SNF. CM faxed facesheets to [facility] and [facility], per dtr's request, per previous CM, dtr does not want Pt to complete skilled at [facility], which is where Pt lives LTC. Neither [facility] or [facility] are in network with Pt's insurance for skilled. CM to attempt to contact Pt's insurance to determine which skilled facilities are in network.
[2021-01-08 14:40] VITALS: BP 182/93
[2021-01-08 16:00] VITALS: BP 178/87
--- NOTE | 2021-01-08 18:11 | NUR ---
PATIENT HAD ALREADY LEFT FOR SURGERY PRIOR TO BEGINNING OF SHIFT. PATIENT RETURNED TO FLOOR AT 1440 S/P ORIF OF LEFT WRIST. PATIENT HAS SPLINT TO LEFT ARM WITH SLING, ELEVATED ON PILLOWS WITH ICE. PATIENT STARTED TO HAVE COMPLAINTS OF PAIN THIS EVENING, TRAMADOL GIVEN. PATIENT HAS FAIR APPETITE, NEEDS ASSISTANCE WITH MEALS. PATIENT REPOSITIONED IN BED. PATIENT IS TEARFUL WHEN FAMILY OUT OF ROOM, REASSURENCE GIVEN. PATIENT DENIES ANY NEEDS AT THIS TIME. CALL LIGHT WITHIN REACH. BED ALARM ON.
[2021-01-08 20:35] VITALS: BP 175/86
[2021-01-09 00:22] VITALS: BP 169/76
[2021-01-09 04:14] VITALS: BP 160/80
[2021-01-09 04:37] LABS: HEMATOCRIT 28.1 % (37.0-47.0); HEMOGLOBIN 9.4 gm/dL (12.0-15.0); MCHC 33.6 g/dL (28.0-37.0); MCV 89.4 fL (80.0-100.0); RBC 3.14 mil/uL (4.20-5.00); RDW-CV 13.4 % (10.5-14.5); WBC 6.3 thou/uL (4.0-11.0)
--- NOTE | 2021-01-09 05:46 | NUR ---
PT HAD PROBLEMS WITH PAIN CONTROL, RESTLESS, TEARFUL AND MOANING AT START OF SHIFT. DR NOTIFIED AND ADDITIONAL DOSE OF IV MORPHINE WELL MELATONIN PRESCRIBED. PT CALMED AND WAS ABLE TO SLEEP FAIRLY WELL AFTER MIDNIGHT. PT TURNED AND REPOSITIONED Q2 HOURS AND PRN FOR SKIN CARE AND COMFORT. RATNA WRAP DRSG AND SLING IN PLACE TO LEFT ARM. FINGERS WARM, EDEMATOUS AND BRUISED. NWB TO LEFT ARM MAINTAINED. PUREWICK IN PLACE DRAINING YELLOW URINE. SCDS ON. PT CONFUSED, HX DEMENTIA, LEGALLY BLIND AND [place]. BED ALARM ON FOR SAFETY.
[2021-01-09 08:00] VITALS: BP 140/62
[2021-01-09 13:14] VITALS: BP 140/62
[2021-01-09 13:17] VITALS: BP 140/62
--- NOTE | 2021-01-09 14:45 | NUR ---
PATIENT TRANSFERED AT THIS TIME VIA STRETCHER WITH [facility] FIRE/AMBULANCE SERVICE. IV'S DC'D AT THIS TIME. SITES COVERED WITH COTTON AND BANDAIDS. DRESSING TO LEFT ARM INPLACE. LEFT ARM IN SLING. LIDOCAINE PATCH TO LEFT SHOULDER. DISCHARGE INSTRUCTIONS REVIEWED WITH DAUGHTER, DAUGHTER ACKNOWLEDGED UNDERSTANDING. ALL QUESTIONS AND CONCERNS ADDRESSED. REPORT CALLED TO [facility] TO [facility].
== END 2021-01-09 14:58 | DRG 492 ==
LOC: M.ERS 13:54 → M.TBA-ER 16:31 → M.ORTHSURG 16:31 → M.2W 16:31 → M.ORTHSURG 18:20 → M.2W 01-04 10:19 → M.ORTHSURG 01-07 14:09
PROVIDERS: Family Medicine; Internal Medicine; Physician Assistant; ADMIT Internal Medicine; ATTEND Internal Medicine
PROC: 2W3DX1Z Immobilization of Left Lower Arm using Splint (ICD-10-PCS; principal; 2021-01-03)
PROC: 0PSG04Z Reposition Left Humeral Shaft with Internal Fixation Device, Open Approach (ICD-10-PCS; 2021-01-08)
PROC: 3E0T3BZ Introduction of Anesthetic Agent into Peripheral Nerves and Plexi, Percutaneous Approach (ICD-10-PCS; 2021-01-08)
DX: M80.022A Age-related osteoporosis with current pathological fracture, left humerus, initial encounter for fracture (principal); G92 Toxic encephalopathy; I48.20 Chronic atrial fibrillation, unspecified; I10 Essential (primary) hypertension; F41.9 Anxiety disorder, unspecified; F32.9 Major depressive disorder, single episode, unspecified; T50.995A Adverse effect of other drugs, medicaments and biological substances, initial encounter; F03.90 Unspecified dementia, unspecified severity, without behavioral disturbance, psychotic disturbance, mood disturbance, and anxiety; I12.9 Hypertensive chronic kidney disease with stage 1 through stage 4 chronic kidney disease, or unspecified chronic kidney disease; N18.9 Chronic kidney disease, unspecified; Z20.822 Contact with and (suspected) exposure to COVID-19; Z86.73 Personal history of transient ischemic attack (TIA), and cerebral infarction without residual deficits; Z79.82 Long term (current) use of aspirin; Z79.899 Other long term (current) drug therapy; Z88.0 Allergy status to penicillin

== ENCOUNTER 2021-07-17 21:52 | Inpatient (IN) | payer OTHER, MEDICAID ==
[~2021-07-17] VITALS: Ht 162.6 cm; Wt 71.2 kg
[~2021-07-17 21:52] MED LIST changes: +GAS RELIEF80 MG PO; +MILK OF MA400 MG/5 M PO; +SENNA PLUS TAB1 EACH PO; +ULTRAM 50MG TAB50 MG PO
[2021-07-17] MEDS ORDERED: PROZAC10 M1 PO (22:03)
[2021-07-17 22:38] LABS: HEMATOCRIT 38.9 % (37.0-47.0); HEMOGLOBIN 12.4 gm/dL (12.0-15.0); MCH 28.4 pg (26.0-34.0); MCHC 31.9 g/dL (28.0-37.0); MCV 89.3 fL (80.0-100.0); MPV 9.5 fl. (7.2-11.1); NUCLEATED RBCS 0 /100WBC; PLATELET COUNT* 168 thou/uL (150-400); RBC 4.36 mil/uL (4.20-5.00); RDW-CV 16.1 % (10.5-14.5); WBC 12.2 thou/uL (4.0-11.0)
[2021-07-17 22:43] LABS: CALCIUM 8.9 mg/dL (8.5-10.1); CREATININE 0.8 mg/dL (0.6-1.3)
[2021-07-17 23:55] LABS: URINE BILIRUBIN NEGATIVE (Negative); URINE BLOOD 1+ (Negative); URINE CLARITY CLEAR; URINE COLOR YELLOW; URINE GLUCOSE-RANDOM NEGATIVE (Negative); URINE KETONES 1+ (Negative); URINE LEUKOCYTES-REFLEX TRACE (Negative); URINE PROTEIN TRACE (Negative); URINE UROBILINOGEN 0.2 E.U./dl (0.2-1.0)
[2021-07-17 23:57] LABS: URINE NITRITE-REFLEX POSITIVE (Negative)
[2021-07-18 00:04] LABS: ABSOLUTE LYMPHOCYTES 1.2 thou/uL (0.8-5.3); ABSOLUTE MONOCYTES 0.4 thou/uL (0.0-1.2); ABSOLUTE NEUTROPHILS 10.6 thou/uL (1.6-8.1)
[2021-07-18 00:06] LABS: PLATELET ESTIMATE ADEQUATE
[2021-07-18 00:19] LABS: CASTS None Seen /LPF (None Seen); MUCUS 0-3 Light strn/LPF (None Seen); SQUAMOUS 0-3 Few /LPF (0-3)
[2021-07-18 00:20] LABS: URINE RBC 3-10 Few /HPF (0-2)
[2021-07-18 00:21] LABS: BACTERIA-REFLEX >30 Many /HPF (None Seen); CRYSTALS None Seen /LPF (None Seen)
[2021-07-18 04:11] VITALS: BP 147/68
[2021-07-18 10:12] VITALS: BP 128/65
[2021-07-18 12:21] LABS: ALBUMIN 2.9 g/dL (3.4-5.0); CALCIUM 8.4 mg/dL (8.5-10.1); CREATININE 0.8 mg/dL (0.6-1.3); POTASSIUM 3.8 mmol/L (3.5-5.1); TOTAL BILIRUBIN 0.4 mg/dL (<0.1-1.0); TOTAL PROTEIN 6.5 g/dL (6.4-8.2)
--- NOTE | 2021-07-18 13:56 | EKG ---
[place] [address] ELECTROCARDIOGRAM REPORT Name: HERRERACHAO Room: [place] [address] ADM IN [facility]#: [id number] Admission: 07/18/21 Attend Phys: Kieran Mcdowell, Discharge: Date of : 34 Date of Service: 07/17/212156 Report #: [id number] THIS REPORT FOR: //name// [facility] ED Test Date: 2021-07-17 Test Time: 21:57:24 Pat Name: CHAO HERRERA Department: Room: [facility] Gender: F Dairy Technician: NISA : 1930 Requested By: Tamera Grimm Order Number: [id number] MD: Chuancey Laird Measurements Intervals [place] Rate: 86 P: 40 PA: 223 QRS: -21 QRSD: 94 T: 93 QT: 401 QTc: 480 Interpretive Statements Sinus rhythm Prolonged PA interval Probable LVH with secondary repol abnrm Inferior infarct, old Compared to ECG 01/04/2021 08:49:34 First degree AV block now present Sinus tachycardia no longer present Prolonged QT interval no longer present Myocardial infarct finding still present Electronically Signed On 07-18-2021 13:56:47 GROCERY WORKER by Chauncey Laird [email or web address] <ELECTRONICALLY SIGNED> By: Chauncey Laird MD, [facility] 07/18/21 1356 56 215 Chauncey Laird MD, FAC /EPI
[2021-07-18 14:41] VITALS: BP 167/105
[2021-07-18 18:18] VITALS: BP 179/83
[2021-07-18 20:09] VITALS: BP 134/77
[2021-07-18 20:51] VITALS: BP 167/71
[2021-07-19] VITALS: BP 134/67
[2021-07-19 04:00] VITALS: BP 165/81
[2021-07-19 04:06] LABS: GLYCOHEMOGLOBIN (HGB A1C) 5.4 % (4.8-5.6)
[2021-07-19 05:40] LABS: ABSOLUTE BASOPHILS 0.1 thou/uL (0.0-0.2); ABSOLUTE EOSINOPHILS 0.4 thou/uL (0.0-0.7); ABSOLUTE LYMPHOCYTES 1.2 thou/uL (0.8-5.3); ABSOLUTE MONOCYTES 0.6 thou/uL (0.0-1.2); ABSOLUTE NEUTROPHILS 5.5 thou/uL (1.6-8.1); BASOPHILS 0.7 %; EOSINOPHILS 4.9 %; HEMATOCRIT 34.5 % (37.0-47.0); HEMOGLOBIN 11.4 gm/dL (12.0-15.0); LYMPHOCYTES 15.1 %; MCH 29.1 pg (26.0-34.0); MCV 88.1 fL (80.0-100.0); MONOCYTES 8.1 %; MPV 10.1 fl. (7.2-11.1); NUCLEATED RBCS 0 /100WBC; PLATELET COUNT* 139 thou/uL (150-400); POLYS 71.2 %; RBC 3.91 mil/uL (4.20-5.00); WBC 7.8 thou/uL (4.0-11.0)
[2021-07-19 05:54] LABS: CALCIUM 8.6 mg/dL (8.5-10.1); CREATININE 0.8 mg/dL (0.6-1.3); POTASSIUM 3.6 mmol/L (3.5-5.1)
[2021-07-19 06:03] LABS: CHOLESTEROL 213 mg/dL (<200); HDL CHOLESTEROL 62 mg/dL (>40); LDL CHOLESTEROL 132 mg/dL (<100); TC:HDL 3.4 Ratio (Not establshd); TRIGLYCERIDE 97 mg/dL (<150); VLDL 19 mg/dL (<40)
[2021-07-19 06:04] LABS: SERUM ASSESSMENT Clear
[2021-07-19 07:40] VITALS: BP 142/68
--- NOTE | 2021-07-19 08:12 | CON ---
[address] [address] CONSULTATION Name: CHAO HERRERA Dilcia Room: [address] IN .R.#: [id number] Admission: 07/18/21 Attend Phys: Kieran Mcdowell MD Discharge: Date of : 32 Report #: [id number] THIS REPORT FOR: cc: Reid Osei Steve T. DO Liston, Michael J. MD [facility] ~ cc: Reid Osei DO DATE OF CONSULTATION: 07/18/2021 CARDIOLOGY CONSULTATION INDICATION: Elevated troponin. HISTORY OF PRESENT ILLNESS: The patient is a very pleasant 89-year-old white female with significant dementia who resides in assisted care. She had a fall sustaining femoral neck fracture. She is here for further treatment. She also has some contusions about her right eyebrow and orbit. She appears stable. She is not having any chest pain or shortness of breath. In this setting, she was noted to have a minimally elevated high sensitivity troponin. As mentioned, she is not having any significant chest pain or discomfort. Her EKG shows a sinus rhythm without significant ST-segment abnormality. PAST MEDICAL HISTORY: 1. Dementia. 2. Chronic renal insufficiency. 3. Hypertension. 4. CVA. 5. Dementia. 6. Left shoulder surgery. 7. Bilateral total knee surgery. 8. History of anxiety and depression. FAMILY HISTORY: Noncontributory. SOCIAL HISTORY: The patient does not smoke or drink alcohol. She resides in assisted care. REVIEW OF SYSTEMS: As per HPI, otherwise unremarkable. PHYSICAL EXAMINATION: VITAL SIGNS: Blood pressure 128/65, pulse is 88 and regular. Telemetry monitoring shows sinus rhythm. HEENT: Head is normocephalic, atraumatic. There is bruising about the right orbit and forehead. Extraocular muscles intact. Muc[place] [address] CONSULTATION Name: CHOA HERRERA Dilcia Room: [address]#: [id number] Admission: 07/18/21 Attend Phys: Kieran Mcdowell MD Discharge: Date of : 32 Report #: [id number] CARDIOVASCULAR: Examination of the neck shows no jugular venous distention. There are no carotid bruits. CHEST: Reveals normal breath sounds throughout. CARDIAC: Reveals a regular rhythm without gallop or murmur. ABDOMEN: Reveals normal bowel sounds. The abdomen is soft and nontender. EXTREMITIES: Shows no edema. SKIN: Warm and dry. IMPRESSION AND RECOMMENDATIONS: 1. Minimally elevated troponin. No symptoms or other findings to suggest acute coronary syndrome. No further evaluation or treatment at this time. 2. Femoral neck fracture. No contraindications to surgical repair should this be necessary. 3. Hypertension. Blood pressure appears to be adequately controlled at this point in time. 4. History of cerebrovascular accident remotely. The patient to have MRI to evaluate for possible recurrent stroke. 5. Dementia. The patient appears stable from a cardiac standpoint. We will follow as needed. <ELECTRONICALLY SIGNED> By: Chauncey Laird MD, FACC 07/19/21 0812 1337 [id number] Laird MD, FACC /nt
[2021-07-19 13:00] VITALS: BP 125/83
[2021-07-19 16:00] VITALS: BP 139/64
--- NOTE | 2021-07-19 17:06 | 2DMMODE ---
[place] [address] 2 D/M-MODE ECHOCARDIOGRAM Name: CHAO HERRERA Room: [address] IN [facility]#: [id number] Admission: 07/18/21 Attend Phys: Kieran Mcdowell, Discharge: Date of : 34 Date of Service: 07/19/21 1705 Report #: [id number] THIS REPORT FOR: cc: Reid Osei,Dominik Price MD [facility] ~ APPROVED REPORT Study performed: 07/19/2021 14:32:44 EXAM: Comprehensive 2D, Doppler, and color-flow Echocardiogram Patient Location: In-Patient Room #: [facility] Status: routine BSA: 1.79 HR: 95 bpm BP: 165/81 mmHg Rhythm: NSR Other Information Study Quality: Good Indications CVA/TIA Echo Enhancing Agent Indication: Rule out Shunt Agent(s) / Amount(s) Used: Agitated Saline 10 cc 2D Dimensions IVSd: 12.05 (7-11mm) LVOT Diam: 20.17 (18-24mm) LVDd: 47.63 mm PWd: 12.19 (7-11mm) LVDs: 33.99 (25-40mm) Aortic Root: 30.21 mm Volumes Left Atrial Volume (Systole) LA ESV Index: 42.40 mL/m2 Aortic Valve AoV Peak Roc.: 1.24 m/s AO Peak Gr.: 6.16 mmHg LVOT Max P.52 mmHg AO Mean Gr.: 3.92 mmHg LVOT Mean P.23 [place] [address] 2 D/M-MODE ECHOCARDIOGRAM Name: CHAO HERRERA Room: [address] IN [facility]#: [id number] Admission: 07/18/21 Attend Phys: Kieran Mcdowell, Discharge: Date of : 34 Date of Service: 07/19/21 1705 Report #: [id number] LVOT Max V: 0.79 m/s AO V2 VTI: 20.96 cm LVOT Mean V: 0.51 m/s NEL (VTI): 2.42 cm2 LVOT V1 VTI: 15.89 cm Mitral Valve E/A Ratio: 0.86 MV Decel. Time: 225.84 ms MV E Max Roc.: 0.62 m/s MV PHT: 65.49 ms MVA (PHT): 3.36 cm2 TDI E/Lateral E': 10.33 E/Medial E': 8.86 Medial E' Roc.: 0.07 m/s Lateral E' Roc.: 0.06 m/s Pulmonary Valve PV Peak Roc.: 0.70 m/s PV Peak Gr.: 1.98 mmHg Tricuspid Valve RAP Estimate: 5.00 mmHg TR Peak Gr.: 33.15 mmHg RVSP: 38.00 mmHg PA Pressure: 38.00 mmHg Left Ventricle The left ventricle is normal size. There is normal LV segmental wall motion. Mild concentric left ventricular hypertrophy. Left ventricular systolic function is normal. The left ventricular ejection fraction is within the normal range. LVEF is 55-60%. Grade I - abnormal relaxation pattern. Right Ventricle The right ventricle is normal size. The right ventricular systolic function is normal. Atria Left atrium is mildly dilated. The interatrial septum is intact with no evidence for an atrial septal defect. The right atrium size is normal. Aortic Valve The aortic valve is normal in structure. No aortic regurgitation is present. There is no aortic valvular stenosis. Mitral Valve The mitral valve is normal in structure[place] [address] 2 D/M-MODE ECHOCARDIOGRAM Name: CHAO HERRERA Room: [address] IN [facility]#: [id number] Admission: 07/18/21 Attend Phys: Kieran Mcdowell, Discharge: Date of : 34 Date of Service: 07/19/21 1705 Report #: [id number] calcification. Trace mitral regurgitation. No evidence of mitral valve stenosis. Tricuspid Valve The tricuspid valve is normal in structure. Trace tricuspid regurgitation. estimated pa pressure 35 mm Hg Pulmonic Valve Pulmonic valve is not well visualized. Trace pulmonic regurgitation. Great Vessels The aortic root is normal in size. IVC is not well visualized. Pericardium There is no pericardial effusion. <Conclusion> Mild concentric left ventricular hypertrophy. LVEF is 55-60%. Left atrium is mildly dilated. The interatrial septum is intact with no evidence for an atrial septal defect. <ELECTRONICALLY SIGNED> By: Dominik Chavis MD, FACC 07/19/21 170 04 04 Dominik Chavis MD, FACC /INF
[2021-07-19 20:00] VITALS: BP 141/72
[2021-07-20 02:18] VITALS: BP 128/77
[2021-07-20 04:29] LABS: ABSOLUTE LYMPHOCYTES 1.3 thou/uL (0.8-5.3); ABSOLUTE MONOCYTES 0.8 thou/uL (0.0-1.2); ABSOLUTE NEUTROPHILS 6.6 thou/uL (1.6-8.1); BASOPHILS 0.2 %; EOSINOPHILS 0.4 %; HEMATOCRIT 29.9 % (37.0-47.0); HEMOGLOBIN 9.8 gm/dL (12.0-15.0); LYMPHOCYTES 14.3 %; MCH 29.1 pg (26.0-34.0); MCHC 32.8 g/dL (28.0-37.0); MCV 88.7 fL (80.0-100.0); MONOCYTES 9.3 %; MPV 9.7 fl. (7.2-11.1); NUCLEATED RBCS 0 /100WBC; PLATELET COUNT* 122 thou/uL (150-400); POLYS 75.8 %; RBC 3.37 mil/uL (4.20-5.00); RDW-CV 16.1 % (10.5-14.5); WBC 8.8 thou/uL (4.0-11.0)
[2021-07-20 05:08] LABS: ALBUMIN 2.5 g/dL (3.4-5.0); CALCIUM 8.2 mg/dL (8.5-10.1); POTASSIUM 3.9 mmol/L (3.5-5.1); TOTAL BILIRUBIN 0.6 mg/dL (<0.1-1.0); TOTAL PROTEIN 6.1 g/dL (6.4-8.2)
[2021-07-20 06:56] VITALS: BP 141/64
[2021-07-20 08:39] VITALS: BP 124/74
[2021-07-20 12:24] VITALS: BP 135/63
[2021-07-20 17:36] VITALS: BP 133/66
[2021-07-20 20:15] VITALS: BP 128/65
[2021-07-21 00:59] VITALS: BP 113/58
[2021-07-21 04:38] LABS: HEMATOCRIT 27.4 % (37.0-47.0); HEMOGLOBIN 9.1 gm/dL (12.0-15.0); MCH 29.5 pg (26.0-34.0); MCHC 33.1 g/dL (28.0-37.0); RBC 3.08 mil/uL (4.20-5.00)
[2021-07-21 04:49] LABS: CALCIUM 7.8 mg/dL (8.5-10.1); POTASSIUM 3.5 mmol/L (3.5-5.1)
[2021-07-21 05:22] VITALS: BP 122/39
[2021-07-21 08:16] VITALS: BP 119/48
[2021-07-21 12:16] VITALS: BP 148/82
[2021-07-21 16:51] VITALS: BP 156/68
[2021-07-21 20:15] VITALS: BP 161/82
[2021-07-22 00:20] VITALS: BP 155/82
[2021-07-22 04:00] VITALS: BP 146/78
[2021-07-22 08:00] VITALS: BP 1500/66
[2021-07-22 12:44] VITALS: BP 145/70
[2021-07-22] MEDS ORDERED: BACTRIM 400-801 EACH PO (15:18)
[2021-07-22 18:12] VITALS: BP 184/83
--- NOTE | 2021-07-23 10:25 | CON ---
[address] [address] CONSULTATION Name: CHAO HERRERA Room: [address] IN M.R.#: [id number] Admission: 07/18/21 Attend Phys: Kieran Mcdowell MD Discharge: 07/22/21 Date of : 32 Report #: [id number] THIS REPORT FOR: cc: Reid Osei Steve T. DO [place], Roxane S. DO ~ DATE OF CONSULTATION: 07/18/2021 NEUROLOGY CONSULT HISTORY OF PRESENT ILLNESS: The patient is an 89-year-old female who apparently fell at the half-way. Neurology consult has been requested. Apparently, the patient has dementia. She was unable to tell me why she had fallen; however, yesterday when the event occurred, she told her daughter that she was turning and she fell. She does not know if she was using her walker or not. In this fall the patient now has a right hip fracture and is being seen by Orthopedic surgery. When the patient was found by EMS, her blood pressure was elevated, so she was given 100 mcg of fentanyl and was then given a second dose for her hip pain. The patient states that her hip does hurt, but it is better. She also mentioned that she now has mid back pain as well. PAST MEDICAL HISTORY: Hypertension, depression, anxiety, dementia, kidney disease, stroke, glaucoma. PAST SURGICAL HISTORY: Left shoulder surgery, bilateral knee replacement. MEDICATIONS: At home, latanoprost daily, buspirone 15 mg b.i.d., senna daily, tramadol q. 6 hours p.r.n. pain, dorzolamide/timolol daily, simethicone p.r.n. gas, lisinopril 40 mg daily, multivitamin daily, vitamin D 1000 units daily, aspirin 81 mg daily, Vision formula tablet daily, fluoxetine 10 mg daily. ALLERGIES: PENICILLIN. VITAL SIGNS: Temperature 36.9, pulse rate 66, respiratory rate 21, blood pressure 128/65. On admission, her blood pressure was 163/98, bedside pulse oximetry 94% on room air. LABORATORY DATA: Hematology: White blood cell count 12.2, hemoglobin 12.4, hematocrit 38.9, MCV 89.3, platelet count 168,000. Urinalysis: Trace protein, 1+ ketones, 1+ blood, nitrite positive, trace leukocyte esterase, moderate bacteria. Chemistry: Sodium 136, potassium 3.8, chloride 103, carbon dioxide 27, BUN 18, creatinine 0.8, GFR 68, glucose 105. Hemoglobin A1c pending. Calcium 8.4, magnesium 2. Total bilirubin 0.4, AST 18, ALT 16, [place] [address] CONSULTATION Name: CHAO HERRERA Room: [address] IN [facility].#: [id number] Admission: 07/18/21 Attend Phys: Kieran Mcdowell MD Discharge: 07/22/21 Date of : 32 Report #: [id number] phosphatase 100. Troponin 58. Total protein 6.5, albumin 2.9. Serology: COVID negative. IMAGING: CT scan of the cervical spine demonstrates no fracture, but degenerative changes are present. CT scan of the head demonstrates no acute intracranial abnormality, age-related findings including symmetric cerebellar and cerebral volume loss, atherosclerosis and chronic central white matter microvascular disease is seen and old left occipital stroke is seen. Carotid Doppler study shows moderate plaque, but without a hemodynamically significant stenosis. NEUROLOGIC: Cranial nerves II-XII are grossly intact. Motor exam demonstrates the patient to be able to lift her arms above her head, although this is more difficult to do with the left and she cannot completely raise it above her head. Strength testing was not tested in the right lower extremity because of the hip fracture; however, she was able to wiggle her toes back and forth in both lower extremities. Reflexes are absent. Plantar responses are flexor. There is no evidence of dysmetria. The patient is not well oriented to place or time. She did not know the year. She did not know where she was when I asked her what hospital was she in. IMPRESSION AND PLAN: This patient has an underlying dementia. I have ordered a B12 and TSH to make sure there were no treatable causes of dementia present. With regard to her fall, it is difficult to know why she fell as the patient cannot provide a history. I will try to order an MRI head for tomorrow morning. I do not know what the plan is for the hip fracture, but if she is going to be taken to surgery, perhaps she can have the MRI done before she goes to surgery. I will also order a lipid profile since she does have a history of stroke and if a new stroke is present on the MRI, then she will also need an echocardiogram. In the meantime, I would recommend continuing aspirin 81 mg daily. As of Monday, Dr. Caldwell will be following the patient. <ELECTRONICALLY SIGNED> By: Kelly Hunt DO 07/23/21 1025 1249 1840Kelly Hunt, /nt
--- NOTE | 2021-07-23 10:26 | CON ---
[address] [address] CONSULTATION Name: HERRERAADRIANACHAO Dilcia Room: [address] IN .R.#: [id number] Admission: 07/18/21 Attend Phys: Kieran Mcdowell MD Discharge: 07/22/21 Date of : 32 Report #: [id number] THIS REPORT FOR: cc: Reid Osei Steve T. DO [place], Roxane S. DO ~ DATE OF CONSULTATION: 07/18/2021 NEUROLOGY CONSULT HISTORY OF PRESENT ILLNESS: The patient is an 89-year-old female who [facility] from the [facility] with a [facility]. Apparently, Neurology is consulted to make sure she has not had another stroke. Unfortunately, the patient has dementia and cannot really provide a history. However, her daughter was there and apparently the patient had told her daughter that she was turning and she just fell. The patient does not remember whether or not she was using her walker. She is supposed to be using a walker when she is up and about. At the moment, the patient is complaining of hip pain. She also has mid back pain. PAST MEDICAL HISTORY: Hypertension, depression, anxiety, dementia, stroke, glaucoma. PAST SURGICAL HISTORY: Left shoulder surgery, bilateral knee replacement. ALLERGIES: PENICILLIN. PHYSICAL EXAMINATION: VITAL SIGNS: Temperature 36.9, pulse rate 88, respiratory rate 21, blood pressure 128/65, bedside pulse oximetry 94% on 2 liters nasal cannula. NEUROLOGIC: Cranial nerves 2-12 are grossly intact. Motor exam demonstrates the patient to just barely be able to lift her arms above her head. This is much more difficult to do on the left and she cannot completely raise that arm above her head. The right lower extremity was not examined other than she is able to wiggle her toes and move her foot back and forth. This is because of the hip fracture. She has the same movement in the left lower extremity. Reflexes are absent. Coordination demonstrates no evidence of dysmetria with [id number]. Gait obviously cannot be tested. Mentation: The patient was alert; however, she was not oriented to place or time. LABORATORY DATA: Hematology: White blood cell count 12.2, hemoglobin 12.4, hematocrit 38.9, MCV 89.3, platelet count 168,000. Urinalysis: Trace protein, 1+ ketones, 1+ blood, nitrite positive, trace leukocyte esterase, moderate bacteria. Chemistry: Sodium 136, potassium 3.8, chloride 103, [place] [address] CONSULTATION Name: CHAO HERRERA Room: [address] IN [facility]#: [id number] Admission: 07/18/21 Attend Phys: Kieran Mcdowell MD Discharge: 07/22/21 Date of : 32 Report #: [id number] 27, BUN 18, creatinine 0.8, GFR 68, glucose 105. Hemoglobin A1c pending. Calcium 8.4, magnesium 2. Total bilirubin 0.4. AST 18, ALT 16, alkaline phosphatase 100. Troponin 58, total protein 6.5, albumin 2.9. Serology: COVID negative. IMAGING: CT scan of the head shows atrophy and microvascular disease and an old left occipital infarct. Carotid Doppler demonstrates moderate plaque, but no hemodynamically significant stenosis. IMPRESSION: At this point, it is very difficult to know why the patient fell since she cannot really give an adequate history. She may not have been using her walker and that may be the reason for the fall. If we are going to look for stroke, then I think an MRI of the head needs to be ordered and hopefully this can be done Monday before any other surgical intervention is done, if it is going to be done. I understand Orthopedic Surgery has been consulted. Given the patient's underlying dementia, B12 and TSH have been ordered to look for any treatable causes. The patient also has an underlying urinary tract infection, which could also be the reason for the fall. The patient is now on Rocephin 1 gram daily. In the meantime, Dr. Mcdowell has ordered a lipid profile. I would not begin a statin until we have the results of this lipid profile. If a new stroke is seen on MRI, then I would also order an echocardiogram. As of Monday, Dr. Caldwell will be following the patient. I thank you for your kind referral on the patient. <ELECTRONICALLY SIGNED> By: Kelly Hunt DO 07/23/21 1026 1256 [id number] Hunt DO /nt
== END 2021-07-22 17:20 | DRG 522 ==
LOC: M.ERS 21:52 → M.TBA-ER 07-18 00:11 → M.2W 07-18 00:11
PROVIDERS: Emergency Medicine; Internal Medicine; ADMIT Internal Medicine; ATTEND Internal Medicine
PROC: 0SRR019 Replacement of Right Hip Joint, Femoral Surface with Metal Synthetic Substitute, Cemented, Open Approach (ICD-10-PCS; principal; 2021-07-19)
DX: S72.011A Unspecified intracapsular fracture of right femur, initial encounter for closed fracture (principal); E44.1 Mild protein-calorie malnutrition; N30.00 Acute cystitis without hematuria; F41.9 Anxiety disorder, unspecified; F03.90 Unspecified dementia, unspecified severity, without behavioral disturbance, psychotic disturbance, mood disturbance, and anxiety; S00.11XA Contusion of right eyelid and periocular area, initial encounter; I16.0 Hypertensive urgency; I12.9 Hypertensive chronic kidney disease with stage 1 through stage 4 chronic kidney disease, or unspecified chronic kidney disease; R77.8 Other specified abnormalities of plasma proteins; N18.9 Chronic kidney disease, unspecified; E78.5 Hyperlipidemia, unspecified; M54.6 Pain in thoracic spine; R29.6 Repeated falls; R26.9 Unspecified abnormalities of gait and mobility; W18.30XA Fall on same level, unspecified, initial encounter; Z96.653 Presence of artificial knee joint, bilateral; F32.A Depression, unspecified; Z20.822 Contact with and (suspected) exposure to COVID-19; Z88.0 Allergy status to penicillin; Z86.73 Personal history of transient ischemic attack (TIA), and cerebral infarction without residual deficits; Y93.89 Activity, other specified; Y99.8 Other external cause status; Y92.128 Other place in nursing home as the place of occurrence of the external cause; Z79.899 Other long term (current) drug therapy

== ENCOUNTER 2021-08-13 13:46 | Inpatient (IN) | payer OTHER, MEDICAID ==
[~2021-08-13] VITALS: Ht 167.6 cm; Wt 76.0 kg
[~2021-08-13 13:46] MED LIST changes: +BACTRIM 400-801 EACH PO; +PROZAC10 M1 PO
[2021-08-13 13:47] VITALS: BP 155/107
[2021-08-13 14:09] LABS: URINE BILIRUBIN NEGATIVE (Negative); URINE BLOOD NEGATIVE (Negative); URINE CLARITY CLEAR; URINE COLOR YELLOW; URINE GLUCOSE-RANDOM NEGATIVE (Negative); URINE KETONES NEGATIVE (Negative); URINE LEUKOCYTES-REFLEX NEGATIVE (Negative); URINE PROTEIN NEGATIVE (Negative); URINE SPECIFIC GRAVITY 1.015 (1.005-1.030); URINE UROBILINOGEN 0.2 E.U./dl (0.2-1.0)
[2021-08-13 14:10] LABS: URINE NITRITE-REFLEX POSITIVE (Negative)
[2021-08-13 14:17] LABS: BACTERIA-REFLEX >30 Many /HPF (None Seen); CASTS None Seen /LPF (None Seen); CRYSTALS None Seen /LPF (None Seen); SQUAMOUS NONE SEEN /LPF (0-3); URINE RBC None Seen /HPF (0-2); URINE WBC-REFLEX 0-5 Rare /HPF (0-5)
[2021-08-13 14:21] LABS: HEMATOCRIT 33.2 % (37.0-47.0); HEMOGLOBIN 11.1 gm/dL (12.0-15.0); MCH 28.9 pg (26.0-34.0); MCHC 33.5 g/dL (28.0-37.0); MCV 86.1 fL (80.0-100.0); MPV 8.3 fl. (7.2-11.1); NUCLEATED RBCS 0 /100WBC; PLATELET COUNT* 251 thou/uL (150-400); RBC 3.85 mil/uL (4.20-5.00); RDW-CV 15.9 % (10.5-14.5); WBC 6.3 thou/uL (4.0-11.0)
[2021-08-13 14:31] LABS: CALCIUM 8.5 mg/dL (8.5-10.1); POTASSIUM 4.1 mmol/L (3.5-5.1)
[2021-08-13 14:35] LABS: ALBUMIN 2.9 g/dL (3.4-5.0); TOTAL BILIRUBIN 0.2 mg/dL (<0.1-1.0); TOTAL PROTEIN 6.9 g/dL (6.4-8.2)
[2021-08-13 14:48] LABS: ABSOLUTE BASOPHILS 0.1 thou/uL (0.0-0.2); ABSOLUTE EOSINOPHILS 0.3 thou/uL (0.0-0.7); ABSOLUTE LYMPHOCYTES 1.4 thou/uL (0.8-5.3); ABSOLUTE MONOCYTES 0.5 thou/uL (0.0-1.2); PLATELET ESTIMATE ADEQUATE
[2021-08-13] MEDS ORDERED: IRON325 M1 PO (14:52)
[2021-08-13] MEDS ORDERED: SEROQUEL 50 MG50 MG PO (20:11)
[2021-08-13 21:00] VITALS: BP 119/59
[2021-08-14 01:00] VITALS: BP 123/50
[2021-08-14 05:45] VITALS: BP 146/80
[2021-08-14 09:45] VITALS: BP 160/85
[2021-08-14 11:19] LABS: CALCIUM 8.3 mg/dL (8.5-10.1); CREATININE 0.8 mg/dL (0.6-1.3); POTASSIUM 3.7 mmol/L (3.5-5.1)
[2021-08-14 11:22] LABS: MAGNESIUM 1.9 mg/dL (1.8-2.4); PHOSPHORUS* 3.5 mg/dL (2.5-4.9)
--- NOTE | 2021-08-14 12:10 | EKG ---
[place] [address] ELECTROCARDIOGRAM REPORT Name: JAVIERCHAO Dilcia Room: [place] [address] ADM IN [facility]#: [id number] Admission: 08/13/21 Attend Phys: Juan Manuel Carlos Discharge: Date of : 34 Date of Service: 08/13/21 1424 Report #: [id number] THIS REPORT FOR: //name// [facility] ED Test Date: 2021-08-13 Test Time: 14:24:34 Pat Name: CHAO HERRERA Department: Room: [facility] Gender: F Release Of Information Specialist: NANCY : 1930 Requested By: Jameson Guan Order Number: [id number] MD: Chauncey Laird Measurements Intervals [place] Rate: 60 P: 48 NE: 169 QRS: -17 QRSD: 88 T: 96 QT: 366 QTc: 366 Interpretive Statements Sinus rhythm Atrial premature complex LVH with secondary repolarization abnormality Inferior infarct, old Compared to ECG 07/17/2021 21:57:24 Atrial premature complex(es) now present First degree AV block no longer present Myocardial infarct finding still present Electronically Signed On 08-14-2021 12:10:08 PRESSURE DISPATCHER by Chauncey Laird [email or web address] <ELECTRONICALLY SIGNED> By: Chauncey Laird MD, FAC 08/14/21 1210 1424 1424 Chauncey Laird MD, [facility] /EPI
[2021-08-14 13:45] VITALS: BP 160/85
[2021-08-14 18:30] VITALS: BP 185/100
[2021-08-14 22:25] VITALS: BP 165/78
[2021-08-15 02:47] VITALS: BP 161/58
[2021-08-15 06:27] VITALS: BP 157/76
--- NOTE | 2021-08-15 09:44 | CON ---
[address] [address] CONSULTATION Name: CHAO HERRERA Room: [place] [address] ADM IN .R.#: [id number] Admission: 08/13/21 Attend Phys: Vu Washington Discharge: Date of : 32 Report #: [id number] THIS REPORT FOR: cc: Reid Osei Steve T. DO [place]on, Michael J. MD [facility] ~ cc: Reid Osei DO DATE OF CONSULTATION: 08/14/2021 CARDIOLOGY CONSULTATION INDICATION: Elevated troponin. HISTORY OF PRESENT ILLNESS: The patient is a very pleasant 89-year-old white female who resides in an assisted care. She is brought to the Emergency Room today with complaints of abdominal discomfort. In this setting, she is noted to have mildly elevated troponin. She denies chest pain. She is not having shortness of breath. At the time of my interview, she reports some urinary urgency and a feeling of anxiety. She is without other complaint at this time. A 12-lead EKG shows sinus rhythm with inferior Q-waves that are not new. I do not appreciate any acute ST or T-wave abnormalities. Initial high sensitivity troponin after arrival was 363 and subsequently 358 and 356. Echocardiogram earlier this month showed normal left ventricular systolic function with an ejection fraction of 55%-60% and grade 1 diastolic dysfunction. There was mild left ventricular hypertrophy and mild left atrial enlargement, otherwise no other abnormalities noted. PAST MEDICAL HISTORY: 1. Dementia. 2. Chronic renal insufficiency. 3. Hypertension. 4. Previous CVA. 5. Left shoulder surgery. 6. Bilateral total knee surgery. 7. History of anxiety and depression. FAMILY HISTORY: Noncontributory. SOCIAL HISTORY: There is no tobacco or alcohol use. The patient resides in [facility] [place] [address] CONSULTATION Name: CHAO HERRERA Room: [address] IN [facility]#: [id number] Admission: 08/13/21 Attend Phys: Vu Washington Discharge: Date of : 34 Report #: [id number] REVIEW OF SYSTEMS: As per HPI, otherwise unremarkable. PHYSICAL EXAMINATION: VITAL SIGNS: Blood pressure 146/80, pulse 95. GENERAL: This is a pleasant elderly female in no distress. Mood and affect appropriate. HEENT: The patient is wearing glasses. Extraocular muscles intact. Mucous membranes are moist. NECK: Shows no jugular venous distention. I do not appreciate carotid bruit. CHEST: Reveals clear lung diallo. CARDIAC: Reveals a regular rhythm without gallop or murmur. ABDOMEN: Reveals normal bowel sounds. The abdomen is soft and nontender. EXTREMITIES: Show no edema. SKIN: Dry. DIAGNOSTIC DATA: A 12-lead EKG shows a sinus rhythm with Q-waves inferiorly without significant ST segment abnormality. EKG is unchanged from prior study. LABORATORY DATA: Reviewed. Sodium 141, potassium 3.7, chloride 107, bicarbonate 27, BUN 14, creatinine 0.8, serum glucose 113, AST 14, lipase 115, total bilirubin 0.2, calcium 8.3, phosphorus 3.5, magnesium 1.9, alkaline phosphatase 160, ALT 14, total protein 6.9, albumin 3.9. High sensitivity troponin on arrival 363, 358 and 356 sequentially. White blood cell count 6.3, hemoglobin 11.1, platelet count 251,000. IMPRESSION: 1. Elevated troponin consistent with type 2 myocardial infarction. The patient is not having any symptoms to suggest acute coronary syndrome. At this point, we would continue conservative management. Recommend daily aspirin. We will continue home medications with the addition of low dose beta lynne. Fasting lipid profile ordered and pending. 2. Hypertension. Blood pressure modestly elevated. We will start low dose beta lynne and follow. 3. Possible dyslipidemia. Fasting lipid profile ordered and pending. 4. Abdominal pain. The patient has symptoms to suggest urinary tract infection with urinary urgency. She has been treated for this presently. <ELECTRONICALLY SIGNED> By: Chauncey Laird MD, FACC 08/15/21 0944 1105 [id number] Laird MD, FACC /nt
[2021-08-15 09:49] VITALS: BP 149/112
[2021-08-15 10:10] LABS: CHOLESTEROL 258 mg/dL (<200); HDL CHOLESTEROL 60 mg/dL (>40); LDL CHOLESTEROL 177 mg/dL (<100); SERUM ASSESSMENT Clear; TC:HDL 4.3 Ratio (Not establshd); TRIGLYCERIDE 109 mg/dL (<150); VLDL 22 mg/dL (<40)
[2021-08-15 15:06] VITALS: BP 159/71
[2021-08-15 19:15] VITALS: BP 159/71
[2021-08-16] VITALS: BP 112/68
[2021-08-16 04:13] VITALS: BP 123/54
[2021-08-16 12:39] VITALS: BP 187/73
[2021-08-16] MEDS ORDERED: TOPROL XL25 MG PO (13:39)
[2021-08-16] MEDS ORDERED: INVANZ1 GM IVPB (13:41)
[2021-08-16 18:40] VITALS: BP 190/90
--- NOTE | 2021-08-16 18:54 | NUR ---
PT DC'D BACK TO [facility] AT [facility] WITH PIC LINE AND IV ANTIBIOTICS.
--- NOTE | 2021-08-18 11:02 | CON ---
[address] [address] CONSULTATION Name: CHAO HERRERA Room: [address] IN [facility].#: [id number] Admission: 08/13/21 Attend Phys: Vu Washington Discharge: 08/16/21 Date of : 34 Report #: [id number] THIS REPORT FOR: cc: Reid Osei Steve T. DO Arakelov, Alexandr V. MD ~ DATE OF CONSULTATION: 08/15/2021 REQUESTING PHYSICIAN: Shailesh Shay DO REASON FOR CONSULTATION: Renal artery stenosis. HISTORY OF PRESENT ILLNESS: The patient is an 89-year-old female admitted to the hospital on 08/14/2021 with complaints of abdominal pain. MEDICAL HISTORY: Significant for dementia, hypertension, history of CVA. The patient had CTA of abdomen and pelvis done due to abdominal pain and incidental finding was a finding of stenosis of the right renal artery. Left renal artery was normal. SOCIAL HISTORY: No tobacco, no alcohol abuse. FAMILY HISTORY: No history of renal problems and her history is not pertinent to 89-year-old female. MEDICATIONS: Reviewed. PHYSICAL EXAMINATION: GENERAL: Awake, alert, oriented, no acute distress. VITAL SIGNS: Blood pressure now 125/72, heart rate 78, afebrile. HEENT: Pupils are round. NECK: Supple. LUNGS: Clear. CARDIOVASCULAR: Irregular rate. ABDOMEN: Soft. ASSESSMENT: 1. Renal artery stenosis with normal renal function. Her serum creatinine is 0.8. Her estimated GFR is appropriate to her age. 2. Hypertension. 3. Dementia. PLAN: There is no need to do any kind of workup or angioplasty on this left renal artery stenosis. Recommend just control her blood pressure. No followup necessary. [place] [address] CONSULTATION Name: CHAO HERRERA Room: [address]#: [id number] Admission: 08/13/21 Attend Phys: Vu Washington Discharge: 08/16/21 Date of : 34 Report #: [id number] Thank you very much. <ELECTRONICALLY SIGNED> By: Jack Vallecillo MD 08/18/21 1102 0952 [id number] Vallecillo MD /nt
== END 2021-08-16 18:42 | DRG 689 ==
LOC: M.ERS 13:46 → M.TBA-ER 17:00
PROVIDERS: Emergency Medicine; Internal Medicine; Internal Medicine Cardiovascular Disease; ADMIT Internal Medicine; ATTEND Internal Medicine
PROC: 05HY33Z Insertion of Infusion Device into Upper Vein, Percutaneous Approach (ICD-10-PCS; principal; 2021-08-16)
DX: N39.0 Urinary tract infection, site not specified (principal); G93.41 Metabolic encephalopathy; Z16.12 Extended spectrum beta lactamase (ESBL) resistance; E44.0 Moderate protein-calorie malnutrition; F32.9 Major depressive disorder, single episode, unspecified; F03.90 Unspecified dementia, unspecified severity, without behavioral disturbance, psychotic disturbance, mood disturbance, and anxiety; F41.9 Anxiety disorder, unspecified; N18.9 Chronic kidney disease, unspecified; I70.1 Atherosclerosis of renal artery; I12.9 Hypertensive chronic kidney disease with stage 1 through stage 4 chronic kidney disease, or unspecified chronic kidney disease; R53.81 Other malaise; B96.20 Unspecified Escherichia coli [E. coli] as the cause of diseases classified elsewhere; Z20.822 Contact with and (suspected) exposure to COVID-19; Z86.73 Personal history of transient ischemic attack (TIA), and cerebral infarction without residual deficits; Z88.0 Allergy status to penicillin; Z87.891 Personal history of nicotine dependence